=== PATIENT | male | born 1990 | race Caucasian/White ===

== ENCOUNTER → 2025-04-18 | Outpatient (CLI) | payer OTHER, SELFPAY | END | disposition home or self-care (01) | PROVIDERS: PCP Nurse Practitioner Family; Referring Provider Nurse Practitioner Family; Visit Provider Nurse Practitioner Family | DX: G47.33 Obstructive sleep apnea (adult) (pediatric) (principal) | CPT/HCPCS: 95811 ==

== ENCOUNTER → 2025-05-05 | Outpatient (CLI) | payer OTHER, SELFPAY ==
--- OUTSIDE RECORDS SUMMARY | 2025-05-05 07:01 | XMS RPT_ITS | CCD ---
Author Organization [facility] Care Team Providers Care Process Development Engineer Name Role Phone Unavailable Primary Care Provider Unavailabl e Franco ENVIRONMENTAL FIELD SERVICES TECHNICIAN.Renuka WYNN Primary Care Provider Franco ENVIRONMENTAL FIELD SERVICES TECHNICIAN.Renuka WYNN Primary Care Provider RENUKA GAMEZ Referring Unavailable RENUKA GAMEZ Primary Care Unavailable RENUKA GAMEZ Attending Unavailable RENUKA GAMEZ Primary Care Unavailable Franco LOAN EXAMINER-C, Renuka Primary Care Provider Franco LOAN EXAMINER-CRenuka Attending Provider Franco LOAN EXAMINER-CRenuka Referring Provider Renuka Gamez Referring Unavailable Renuka Gamez Attending Unavailable Renuka Gamez Primary Care Unavailable Renuka Gamez Primary Care Unavailable Renuka Gamez Referring Unavailable Renuka Gamez Attending Unavailable Medications Current Medications Medication Drug Class(es) Dates Sig (Normalized) Sig (Original) amoxicillin 875 mg / clavulanate 125 mg oral tablet (1 source) Penicillin-class Antibacterial Start: 05-11-2023 End: 05-18-2023 take 1 tablet by mouth twice daily amoxicillin-clavu lanic acid (AUGMENTIN) 875-125 mg per tablet Take 1 tablet by mouth twice daily for 7 days. 14 tablet 0 05/11/2023 05/18/2023 Active Comment on above: Take 1 tablet by zoila twice daily for 7 days. cetirizine hydrochloride 10 mg oral capsule (9 sources) Histamine-1 Receptor Antagonist Cetirizine (ZYRTEC) 10 mg cap Take by mouth. Active Comment on above: Take by mouth. oseltamivir 75 mg oral capsule (1 source) Neuraminidase Inhibitor Start: 11-20-2024 End: 03-01-2025 take 1 capsule by mouth once daily oseltamivir (TAMIFLU) 75 mg capsule Take 1 capsule by mouth once daily for 7 days. 7 capsule 11/20/2024 11/27/2024 Active predniSONE 10 mg oral tablet (1 source) Start: 06-05-2023 End: 06-17-2023 predniSONE (DELTASONE) 10 mg tablet Indications: ETD (Eustachian tube dysfunction), bilateral Take 4 tabs daily x 3 days, then 3 tabs x 3 days, 2 tabs x 3 days, then 1 tab x3 days with food. 30 tablet 0 06/05/2023 06/17/2023 Active Comment on above: Take 4 tabs daily x 3 days, then 3 tabs x 3 days, 2 tabs x 3 days, then 1 tab x3 days with food. Completed/Discontinued Medications Medication Drug Class(es) Dates Sig (Normalized) Sig (Original) fluticasone propionate 0.05 mg/actuat metered dose nasal spray (5 sources) Corticosteroid Start: 06-05-2023 End: 03-14-2025 take 2 spray(s) by mouth once daily fluticasone (FLONASE) 50 mcg/actuation nasal spray Indications: ETD (Eustachian tube dysfunction), bilateral Use 2 Sprays in each nostril once daily. Rinse mouth after use. 1 Each 06/05/2023 03/14/2025 Discontinued Comment on above: Use 2 Sprays in each nostril once daily. Rinse mouth after use. Multivitamin capsule (10 sources) End: 03-14-2025 take 1 capsule by mouth once daily Multivitamin capsule Take 1 capsule by mouth once daily. 03/14/2025 Discontinued take 1 capsule by mouth once jose manuel ly Multivitamin capsule Take 1 capsule by mouth once daily. Active take 1 capsule by mouth once jose manuel ly Multivitamin capsule Take 1 capsule by mouth once daily. 0 Active Comment on above: Take 1 capsule by [facility] once daily. Problems Problem Classification Problem Date Documented Da te Episodic/Chronic Immunizations and screening for infectious disease (1 source) Encounter for immunization; Translations: [Encounter for immunization] Onset: 03-14-2025 Episodic Other lower respiratory disease (1 source) Snoring; Translations: [Snoring] Episodic Other male genital disorders (2 sources) Pain in testicle; Translations: [Testicular pain, unspecified] Episodic Other nutritional; endocrine; and metabolic disorders (5 sources) Obese class I; Translations: [Obesity, Class I, BMI 30-34.9] Onset: 03-14-2025 03-14-2025 Chronic Other screening for suspected conditions (not mental disorders or infectious disease) (7 sources) Patient encounter status; Translations: [Encounter for screening for lipoid disorders] Onset: 03-14-2025 Episodic Other upper respiratory disease (1 source) Chronic rhinitis; Translations: [Unspecified sinusitis (chronic)] 05-11-2023 Chronic Other upper respiratory infections (1 source) Acute upper respiratory infection; Translations: [Acute upper respiratory infection, unspecified] 09-17-2023 Episodic Otitis media and related conditions (2 sources) Acute left otitis media; Translations: [Otitis media, unspecified, left ear] 05-11-2023 Episodic Residual codes; unclassified (2 sources) Obstructive sleep apnea syndrome; Translations: [Obstructive sleep apnea (adult) (pediatric)] Chronic Residual codes; unclassified (1 source) Obstructive sleep apnea (adult) (pediatric); Translations: [Obstructive sleep apnea (adult) (pediatric)] Onset: 04-22-2025 Chronic Residual codes; unclassified (1 source) FH: Hypothyroidism; Translations: [Family history of other endocrine, nutritional and metabolic diseases] 03-14-2025 Episodic Residual codes; unclassified (1 source) Family history of other endocrine, nutritional and metabolic diseases; Translations: [FH: hypothyroidism] Onset: 03-14-2025 Episodic Screening and history of mental health and substance abuse codes (2 sources) Encounter for screening for depression; Translations: [Encounter for screening examination for other mental health and behavioral disorders] Onset: 03-14-2025 Episodic Unclassified (1 source) Obesity, Class I, BMI 30-34.9; Translations: [Obesity, Class I, BMI 30-34.9] Onset: 03-14-2025 Results Test Name Value Interpretation Reference Range Charles Bell 04-15-2025 JOON Telephone (FAMPWS) VINCENT LEZAMA ([id number]) 1990 M Date Time Provider Department 04/15/25 RENUKA GAMEZ During your visit today, we recorded the following information about you: Huma Alvarado RN 04/15/2025 11:11 AM Signed Mai from [facility] Scheduling calling and states that patient is scheduled for sleep study on Friday. Mai reports that they need a new sleep study order so that they can get it processed through insurance. Renuka wrote previous order on 04/23/2024. Please review and advise, ERIKA Mehta Jeffrey A, MD 04/15/2025 4:08 PM Signed Order written and ready to be faxed. Saranya Delcid MA 04/15/2025 4:10 PM Signed Order faxed. Saranya Delcid MA Allergies As of Date: 04/15/2025 (No Known Allergies) Date Reviewed: 03/14/2025 Reviewed by: Alysha Chung MA - Fully Assessed Reason for Visit: Orders [681] Prescriptions as of 04/15/2025 - Cetirizine (ZYRTEC) 10 mg cap Take by mouth. Problem List As Of Date 04/15/2025 Noted Resolved Obesity, Class I, BMI 30-34.9 [E66.811] 03/14/2025 Encounter Status:Closed by SARANYA DELCID on 04/15/25 Normal [facility] CBC W Auto Differential pane l (Bld)on 03-14-2025 Basophils (Bld) [#/Vol] 0.06 10*3/uL [facility] Basophils/100 WBC (Bld) 0.9 % [facility] Differential cell count method Nom (Bld) Auto [facility] Eosinophils (Bld) [#/Vol] 0.15 10*3/uL [facility] Eosinophils/100 WBC (Bld) 2.3 % [facility] Erythrocyte distribution width (RBC) [Ratio] 12.7 % 11.5 - 15.0 % [facility] Hematocrit (Bld) [Volume fraction] 46.2 % 39.0 - 51.0 % [facility] Hemoglobin (Bld) [Mass/Vol] 16 g/dL 13.0 - 17.0 g/dL [facility] Immature granulocytes (Bld) [#/Vol] NINF [facility] Immature granulocytes/100 WBC (Bld) 0.3 % [facility] Lymphocytes (Bld) [#/Vol] 2.87 10*3/uL [facility] Lymphocytes/100 WBC (Bld) 44.4 % [facility] MCH (RBC) [Entitic mass] 30.9 pg 26.0 - 34.0 pg [facility] MCHC (RBC) [Mass/Vol] 34.6 g/dL 30.5 - 36.0 g/dL [facility] MCV (RBC) [Entitic vol] 89.2 fL 80.0 - 100.0 fL [facility] Monocytes (Bld) [#/Vol] 0.47 10*3/uL [facility] Monocytes/100 WBC (Bld) 7.3 % [facility] Neutrophils (Bld) [#/Vol] 2.9 10*3/uL [facility] Neutrophils/100 WBC (Bld) 44.8 % [facility] Nucleated RBC (Bld) [#/Vol] [facility] Nucleated RBC/100 WBC (Bld) [Ratio] 0 % /100 WBC [facility] Platelet mean volume (Bld) [Entitic vol] 10.1 fL 9.0 - 12.7 fL [facility] Platelets (Bld) [#/Vol] 362 10*3/uL [facility] RBC (Bld) [#/Vol] 5.18 10*6/uL 4.20 - 6.0 0 m/uL [facility] WBC (Bld) [#/Vol] 6.47 10*3/uL [facility] Basophils (Bld) [#/Vol] 0.06 10*3/uL Normal <0.11 [facility] Comment on above: Order Comment: Speci men Type: BLOOD SPECIMEN Ordering Facility: [facility] Address: [address] [place] [address] Performed By: #### 5 7021-8 #### [facility] CLIA [id number] [address] [place] [address] [place] Basophils/100 WBC (Bld) 0.9 % Normal [facility] Comment on above: Order Comment: Speci men Type: BLOOD SPECIMEN Ordering Facility: [facility] Address: [address] [place] [address] Performed By: #### 5 7021-8 #### [facility] CLIA [id number] [address] [place] [address] [place] Differential cell count method Nom (Bld) Auto Normal [facility] Comment on above: Order Comment: Speci men Type: BLOOD SPECIMEN Ordering Facility: [facility] Address: [address] [place] [address] Performed By: #### 5 7021-8 #### [facility] CLIA [id number] [address] [place] [address] [place] Eosinophils (Bld) [#/Vol] 0.15 10*3/uL Normal <0.46 [facility] Comment on above: Order Comment: Speci men Type: BLOOD SPECIMEN Ordering Facility: [facility] Address: [address] [place] [address] Performed By: #### 5 7021-8 #### [facility] CLIA [id number] [address] [place] [address] [place] Eosinophils/100 WBC (Bld) 2.3 % Normal [facility] Comment on above: Order Comment: Speci men Type: BLOOD SPECIMEN Ordering Facility: [facility] Address: [address] [place] [address] Performed By: #### 5 7021-8 #### [facility] CLIA [id number] [address] [place] [address] [place] Erythrocyte distribution width (RBC) [Ratio] 12.7 % Normal 11.5-15.0 [facility] Comment on above: Order Comment: Speci men Type: BLOOD SPECIMEN Ordering Facility: [facility] Address: [address] [place] [address] Performed By: #### 5 7021-8 #### [facility] CLIA [id number] [address] [place] [address] [place] Hematocrit (Bld) [Volume fraction] 46.2 % Normal 39.0-51.0 [facility] Comment on above: Order Comment: Speci men Type: BLOOD SPECIMEN Ordering Facility: [facility] Address: [address] [place] [address] Performed By: #### 5 7021-8 #### [facility] CLIA [id number] [address] [place] [address] [place] Hemoglobin (Bld) [Mass/Vol] 16.0 g/dL Normal 13.0-17.0 [facility] Comment on above: Order Comment: Speci men Type: BLOOD SPECIMEN Ordering Facility: [facility] Address: [address] [place] [address] Performed By: #### 5 7021-8 #### [facility] CLIA [id number] [address] [place] [address] [place] Immature granulocytes (Bld) [#/Vol] 10*3/uL Normal <0.10 [facility] Comment on above: Order Comment: Speci men Type: BLOOD SPECIMEN Ordering Facility: [facility] Address: [address] [place] [address] Performed By: #### 5 7021-8 #### [facility] CLIA [id number] [address] [place] [address] [place] Immature granulocytes/100 WBC (Bld) 0.3 % Normal [facility] Comment on above: Order Comment: Speci men Type: BLOOD SPECIMEN Ordering Facility: [facility] Address: [address] [place] [address] Performed By: #### 5 7021-8 #### [facility] CLIA [id number] [address] [place] [address] [place] Lymphocytes (Bld) [#/Vol] 2.87 10*3/uL Normal 1.00-4.00 [facility] Comment on above: Order Comment: Speci men Type: BLOOD SPECIMEN Ordering Facility: [facility] Address: [address] [place] [address] Performed By: #### 5 7021-8 #### [facility] CLIA [id number] [address] [place] [address] [place] Lymphocytes/100 WBC (Bld) 44.4 % Normal [facility] Comment on above: Order Comment: Speci men Type: BLOOD SPECIMEN Ordering Facility: [facility] Address: [address] [place] [address] Performed By: #### 5 7021-8 #### [facility] CLIA [id number] [address] [place] [address] [place] MCH (RBC) [Entitic mass] 30.9 pg Normal 26.0-34.0 [facility] Comment on above: Order Comment: Speci men Type: BLOOD SPECIMEN Ordering Facility: [facility] Address: [address] [place] [address] Performed By: #### 5 7021-8 #### [facility] CLIA [id number] [address] [place] [address] [place] MCHC (RBC) [Mass/Vol] 34.6 g/dL Normal 30.5-36.0 [facility] Comment on above: Order Comment: Speci men Type: BLOOD SPECIMEN Ordering Facility: [facility] Address: [address] [place] [address] Performed By: #### 5 7021-8 #### [facility] CLIA [id number] [address] [place] [address] [place] MCV (RBC) [Entitic vol] 89.2 fL Normal 80.0-100.0 [facility] Comment on above: Order Comment: Speci men Type: BLOOD SPECIMEN Ordering Facility: [facility] Address: [address] [place] [address] Performed By: #### 5 7021-8 #### [facility] CLIA [id number] [address] [place] [address] [place] Monocytes (Bld) [#/Vol] 0.47 10*3/uL Normal <0.87 [facility] Comment on above: Order Comment: Speci men Type: BLOOD SPECIMEN Ordering Facility: [facility] Address: [address] [place] [address] Performed By: #### 5 7021-8 #### [facility] CLIA [id number] [address] [place] [address] [place] Monocytes/100 WBC (Bld) 7.3 % Normal [facility] Comment on above: Order Comment: Speci men Type: BLOOD SPECIMEN Ordering Facility: [facility] Address: [address] [place] [address] Performed By: #### 5 7021-8 #### [facility] CLIA [id number] [address] [place] [address] [place] Neutrophils (Bld) [#/Vol] 2.90 10*3/uL Normal 1.45-7.50 [facility] Comment on above: Order Comment: Speci men Type: BLOOD SPECIMEN Ordering Facility: [facility] Address: [address] [place] [address] Performed By: #### 5 7021-8 #### [facility] CLIA [id number] [address] [place], [place] [address] [place] Neutrophils/100 WBC (Bld) 44.8 % Normal [facility] Comment on above: Order Comment: Speci men Type: BLOOD SPECIMEN Ordering Facility: [facility] Address: [address] [place] [address] Performed By: #### 5 7021-8 #### [facility] CLIA [id number] [address] [place], [place] [id number] [place] Nucleated RBC (Bld) [#/Vol] 10*3/uL Normal <0.01 [facility] Comment on above: Order Comment: Speci men Type: BLOOD SPECIMEN Ordering Facility: [facility] Address: [address] [place] [address] Performed By: #### 5 7021-8 #### [facility] CLIA [id number] [address] [place] [address] [place] Nucleated RBC/100 WBC (Bld) [Ratio] 0.0 /100 WBC Normal [facility] Comment on above: Order Comment: Speci men Type: BLOOD SPECIMEN Ordering Facility: [facility] Address: [address] [place] [address] Performed By: #### 5 7021-8 #### [facility] CLIA [id number] [address] [place] [address] [place] Platelet mean volume (Bld) [Entitic vol] 10.1 fL Normal 9.0-12.7 [facility] Comment on above: Order Comment: Speci men Type: BLOOD SPECIMEN Ordering Facility: [facility] Address: [address] [place] [address] Performed By: #### 5 7021-8 #### [facility] CLIA [id number] [address] [place] [address] [place] Platelets (Bld) [#/Vol] 362 10*3/uL Normal 150-400 [facility] Comment on above: Order Comment: Speci men Type: BLOOD SPECIMEN Ordering Facility: [facility] Address: [address] [place] [address] Performed By: #### 5 7021-8 #### [facility] CLIA [id number] [address] [place] [address] [place] RBC (Bld) [#/Vol] 5.18 10*6/uL Normal 4.20-6.00 [facility] Comment on above: Order Comment: Speci men Type: BLOOD SPECIMEN Ordering Facility: [facility] Address: [address] [place] [address] Performed By: #### 5 7021-8 #### [facility] CLIA [id number] [address] [place] [address] [place] WBC (Bld) [#/Vol] 6.47 10*3/uL Normal 3.70-11.00 [facility] Comment on above: Order Comment: Speci men Type: BLOOD SPECIMEN Ordering Facility: [facility] Address: [address] [place] [address] Performed By: #### 5 7021-8 #### [facility] CLIA [id number] [address] [place] [address] [place] CNOVon 03-14-2025 [facility] VINCENT LEZAMA ([id number]) 1990 M Date Time Provider Department 03/14/25 1:40 PM RENUKA GAMEZ [facility] During your visit today, we recorded the following information about you: Pulse Blood pressure Weight 82/minute 122/79 110 kg Renuka Gamez APRN.LAN SUPPORT SPECIALIST 03/14/2025 3:05 PM Signed Chief Complaint Patient presents with: Follow Up HPI Vincent Lezama is a 34 year old male who presents here today for Above Complaints.. Patient presents for wellness visit. Has not been seen since 2022. Back in 2022 he had a home sleep study done and was diagnosed with sleep apnea. Was ordered a cpap, but never heard from the company and did not receive it. Snores at night Mother also was diagnosed with hypothyroidism in the last few years. Patient states that he is often tired but denies sensitivity to heat or cold, or weight changes. Also has young children at home. Seasonal allergies- takes daily zyrtec and uses Flonase as needed. States it is well controlled. Average caffeine intake is 3-5 cups of coffee. Does not follow a particular diet. Does exercise 2-3 times a week, varies activities walking, running, and lifting weights. Reports job is very demanding and does not feel depressed/anxious just overworked. Past medical history, appointments, medications, allergies reviewed. Previous Medical History PAST MEDICAL HISTORY Diagnosis Date History of varicocele Previous Surgical History No past surgical history on file. Family History FAMILY HISTORY Problem Relation Age of Onset Migraines Mother Hypothyroidism Mother No Known Problems Father unknown other (other) Maternal Grandmother spinal ataxia Heart Attack Maternal Grandfather Heart disease Maternal Grandfather other (oth) Maternal Grandfather dissected aorta Patient Allergies ALLERGIES No Known Allergies Current Medications Current Outpatient Medications on File Prior to Visit Medication Sig Cetirizine (ZYRTEC) 10 mg cap Take by mouth. No current facility-administered medications on file prior to visit. Social History Social History Tobacco Use Smoking status: Never Smokeless tobacco: Never Substance Use Topics Alcohol use: Yes Alcohol/week: 3.0 standard drinks of alcohol Types: 2 Cans of beer, 1 Shots of liquor per week Drug use: Never Review of Symptoms REVIEW OF SYSTEMS GENERAL: No weight loss, malaise or fevers/chills HEENT: Negative for frequent or significant headaches, No changes in hearing or vision. NECK: Negative for lumps, goiter, pain and significant neck swelling RESPIRATORY: Negative for cough, hemoptysis, wheezing, dyspnea or shortness of breath CARDIOVASCULAR: Negative for chest pain, leg swelling, orthopnea, or palpitations GI: No nausea, vomiting, or diarrhea/constipation . No hematochezia/melena. No heartburn or reflux symptoms. : No history of dysuria, frequency or incontinence MUSCULOSKELETAL: Routinely has bilateral knee pain that is chronic SKIN: Negative for lesions, rash, and itching ENDOCRINE: Negative for cold or heat intolerance, polyuria, polydipsia and goiter NEURO: Intermittent history of headaches. No syncope, paralysis, seizures or tremors MOOD: Negative for depression, anxiety, or suicidal ideation. EXAM: BP 122/79 Pulse 82 Wt 110 kg (242 lb 8.1 oz) BMI 31.99 kg/m? General Appearance: Well appearing, alert, in no acute distress, well-hydrated, well nourished.. Skin: Skin color, texture, turgor normal, no suspicious rashes or lesions. Head: Normocephalic, no masses, lesions, tenderness or abnormalities. Eyes: Anicteric sclera. Pupils are equally round and reactive to light. Extraocular movements are intact. . Ears: External ears normal, canals clear. Nose/Sinuses: Nares normal, septum midline, mucosa normal, no drainage or sinus tenderness. Oropharynx: Lips, mucosa, and tongue normal, teeth and gums normal, oropharynx normal. Neck: Supple, no adenopathy; thyroid symmetric, normal size, no bruits. Lungs: Lungs clear to auscultation. No wheezing, rhonchi, rales.. Heart: RRR without murmur, gallop, or rubs. No ectopy. Abdomen: Normal abdominal exam, Abdomen soft, non-tender. Bowel sounds normal. No masses, organomegaly. Health Maintenance List DTaP,Tdap,Td Vaccine(5 - Tdap) due on 2000 Depression Screening Never done Anxiety Screening Never done Hepatitis C Screening Never done HIV Screening Never done Covid-19 Vaccine( season) due on 05/30/2024 Influenza Vaccine(Season Ended) due on 05/30/2025 Lipid Screening due on 11/15/2027 Hepatitis B Vaccine Discontinued ASSESSMENT/PLAN: 1. Well adult exam - ICD9: V70.0, ICD10: Z00.00 (primary diagnosis) - Counseled on healthy diet and regular exercise - Discussed need for and benefit of weight loss. BMI 31.99 kg/(m2) - Patient counseled on and (more content not included)... Normal [facility] Comprehensive metabolic 2000 panelon 03-14-2025 Albumin [Mass/Vol] 4.8 g/dL Normal 3.9-4.9 [facility] Comment on above: Order Comment: Speci men Type: BLOOD SPECIMEN Ordering Facility: [facility] Address: [address] [place] [address] Performed By: #### 3 024-7, 13530-5, LIPNF, 3053-6 #### [facility] CLIA [id number] [address] [place] [address] [id number] [address] [place] ALP [Catalytic activity/Vol] 65 U/L Normal 38-113 [facility] Comment on above: Order Comment: Speci men Type: BLOOD SPECIMEN Ordering Facility: [facility] Address: [address] [place] [address] Performed By: #### 3 024-7, 72144-8, LIPNF, 305-6 #### [facility] CLIA [id number] [address] [place] [address] [place] ALT [Catalytic activity/Vol] 36 U/L Normal 10-54 [facility] Comment on above: Order Comment: Speci men Type: BLOOD SPECIMEN Ordering Facility: [facility] Address: [address] [place] [address] Performed By: #### 3 024-7, 96153-4, LIPNF, 305-6 #### [facility] CLIA [id number] [address] [place] [address] [place] Anion gap [Moles/Vol] 13 mmol/L Normal 8-15 [facility] Comment on above: Order Comment: Speci men Type: BLOOD SPECIMEN Ordering Facility: [facility] Address: [address] [place] [address] Performed By: #### 3 024-7, 77931-3, LIPNF, 305-6 #### [facility] CLIA [id number] [address] [place] [address] [place] AST [Catalytic activity/Vol] 34 U/L Normal 14-40 [facility] Comment on above: Order Comment: Speci men Type: BLOOD SPECIMEN Ordering Facility: [facility] Address: [address] [place] [address] Performed By: #### 3 024-7, 62095-4, LIPNF, 3053-6 #### [facility] CLIA [id number] [address] [place] [address] [place] Bilirubin [Mass/Vol] 0.5 mg/dL Normal 0.2-1.3 [facility] Comment on above: Order Comment: Speci men Type: BLOOD SPECIMEN Ordering Facility: [facility] Address: [address] [place] [address] Performed By: #### 3 024-7, 52240-6, LIPNF, 305-6 #### [facility] CLIA [id number] [address] [place] [address] [place] Calcium [Mass/Vol] 9.1 mg/dL Normal 8.5-10.2 [facility] Comment on above: Order Comment: Speci men Type: BLOOD SPECIMEN Ordering Facility: [facility] Address: [address] [place] [address] Performed By: #### 3 024-7, 89775-7, LIPNF, 3052-6 #### [facility] CLIA [id number] [address] [place] [address] [place] Chloride [Moles/Vol] 103 mmol/L Normal 98-107 [facility] Comment on above: Order Comment: Speci men Type: BLOOD SPECIMEN Ordering Facility: [facility] Address: [address] [place] [address] Performed By: #### 3 024-7, 64302-2, LIPNF, 3052-6 #### [facility] CLIA [id number] [address] [place] [address] [place] CO2 [Moles/Vol] 25 mmol/L Normal 22-30 [facility] Comment on above: Order Comment: Speci men Type: BLOOD SPECIMEN Ordering Facility: [facility] Address: [address] [place] [address] Performed By: #### 3 024-7, 58359-8, LIPNF, 305-6 #### [facility] CLIA [id number] [address] [place] [address] [place] Creatinine [Mass/Vol] 1.17 mg/dL Normal 0.73-1.22 [facility] Comment on above: Order Comment: Speci men Type: BLOOD SPECIMEN Ordering Facility: [facility] Address: [address] [place] [address] Performed By: #### 3 024-7, 73151-0, LIPGUY, 3053-6 #### [facility] CLIA [id number] [address] [place] [address] [place] Creatinine and Glomerular filtration rate.predicted panel (S/P/Bld) 83 mL/min/1.73m??? Normal >=60 [facility] Comment on above: Order Comment: Yumiko rhodes Type: BLOOD SPECIMEN Ordering Facility: [facility] Address: [address] [place] [address] Result Comment: Stephanie mated Glomerular Filtration Rate (eGFR) is calculated using the 2020 CKD-EPI creatinine equation. This equation utilizes serum creatinine, sex, and age as parameters. The creatinine assay has traceable calibration to isotope dilution-mass spectrometry. Refer to KDIGO guidelines for clinical interpretation. In patients with unstable renal function, e.g. those with acute kidney injury, the eGFR may not accurately reflect actual GFR. Performed By: #### 3 024-7, 81329-2, LIPGUY, 3053-6 #### [facility] CLIA [id number] [address] [place] [address] [place] Glucose [Mass/Vol] 84 mg/dL Normal 74-99 [facility] Comment on above: Order Comment: Yumiko rhodes Type: BLOOD SPECIMEN Ordering Facility: [facility] Address: [address] [place] [address] Result Comment: The [place] Diabetes Association (ADA) provides guidance for cutoff values for fasting glucose and random glucose. The ADA defines fasting as no caloric intake for at least 8 hours. Fasting plasma glucose results between 100 to 125 mg/dL indicate increased risk for diabetes (prediabetes). Fasting plasma glucose results greater than or equal to 126 mg/dL meet the criteria for diagnosis of diabetes. In the absence of unequivocal hyperglycemia, results should be confirmed by repeat testing. In a patient with classic symptoms of hyperglycemia or hyperglycemic crisis, random plasma glucose results greater than or equal to 200 mg/dL meet the criteria for diagnosis of diabetes. Reference: Standards of Medical Care in Diabetes 2016, [place] Diabetes Association. Diabetes Care. 2016.39(Suppl 1). Performed By: #### 3 024-7, 22657-0, LIPNF, 3053-6 #### [facility] CLIA [id number] [address] [place] [address] [place] Potassium [Moles/Vol] 4.1 mmol/L Normal 3.7-5.1 [facility] Comment on above: Order Comment: Speci men Type: BLOOD SPECIMEN Ordering Facility: [facility] Address: [address] [place] [address] Performed By: #### 3 024-7, 97948-7, LIPNF, 305-6 #### [facility] CLIA [id number] [address] [place] [address] [place] Protein [Mass/Vol] 7.4 g/dL Normal 6.3-8.0 [facility] Comment on above: Order Comment: Speci men Type: BLOOD SPECIMEN Ordering Facility: [facility] Address: [address] [place] [address] Performed By: #### 3 024-7, 04047-1, LIPNF, 305-6 #### [facility] CLIA [id number] [address] [place] [address] [place] Sodium [Moles/Vol] 141 mmol/L Normal 136-144 [facility] Comment on above: Order Comment: Speci men Type: BLOOD SPECIMEN Ordering Facility: [facility] Address: [address] [place] [address] Performed By: #### 3 024-7, 19782-8, LIPNF, 3053-6 #### [facility] CLIA [id number] [address] [place] [address] [place] Urea nitrogen [Mass/Vol] 11 mg/dL Normal 9-24 [facility] Comment on above: Order Comment: Speci men Type: BLOOD SPECIMEN Ordering Facility: [facility] Address: [address] [place] [address] Performed By: #### 3 024-7, 77542-7, LIPNF, 305-6 #### [facility] CLIA [id number] [address] [place] [address] [facility] [place] LIPID PANEL, NONFASTINGon Cholesterol [Mass/Vol] 178 mg/dL Normal <200 [facility] Comment on above: Order Comment: Yumiko rhodes Type: BLOOD SPECIMEN Ordering Facility: [facility] Address: [address] [place] [address] Result Comment: <200 mg/dL, Desirable 200-239 mg/dL, Borderline high >239 mg/dL, High Performed By: #### 3 024-7, 12866-6, LIPNF, 305-6 #### [facility] CLIA [id number] [address] [place] [address] [place] HDL CHOLESTEROL, NF 59 mg/dL Normal >39 [facility] Comment on above: Order Comment: Yumiko rhodes Type: BLOOD SPECIMEN Ordering Facility: [facility] Address: [address] [place] [address] Result Comment: 40-5 9 mg/dL, Acceptable >59 mg/dL, High: Negative risk factor for coronary heart disease <40 mg/dL, Low: Positive risk factor for coronary heart disease Performed By: #### 3 024-7, 49171-9, LIPNF, 305-6 #### [facility] CLIA [id number] [address] [place] [address] [place] LDL CHOLESTEROL CALCULATED, NF 110 mg/dL High <100 [facility] Comment on above: Order Comment: Yumiko rhodes Type: BLOOD SPECIMEN Ordering Facility: [facility] Address: [address] [place] [address] Result Comment: <100 mg/dL, Optimal 100-129 mg/dL, Near optimal/above optimal 130-159 mg/dL, Borderline high 160-189 mg/dL, High >189 mg/dL, Very high Secondary prevention optimal LDL Cholesterol levels are recommended to be <70 mg/dL LDL cholesterol is calculated using the Gunter-NIH equation. Performed By: #### 3 024-7, 95274-2, LIPGUY, 3053-6 #### [facility] CLIA [id number] [address] [place] [address] OF [facility] LDL/HDL RATIO, NF 1.86 mg/dL Normal <2.54 [facility] Comment on above: Order Comment: Speci men Type: BLOOD SPECIMEN Ordering Facility: [facility] Address: [address] [place] [address] Result Comment: Refe rence: 1. National Cholesterol Education Program ATP III Guideline At-A-Glance Quick Desk Reference: National Heart, Lung, and Blood [place]. National Institutes of Health. 2001: NIH Publication No. 01-3305. 2. An International Atherosclerosis Society position paper: global recommendations for the management of dyslipidemia: executive summary, Atherosclerosis. 2014: 232(2):410-413. Performed By: #### 3 024-7, 29650-9, LIPGUY, 6 #### [facility] CLIA [id number] [address] [place] [address] STATES OF [facility] NON HDL CHOL, NF 119 mg/dL Normal <130 [facility] Comment on above: Order Comment: Yumiko carmelo Type: BLOOD SPECIMEN Ordering Facility: [facility] Address: [address] [place] [address] Result Comment: <130 mg/dL, Optimal 130-159 mg/dL, Near optimal/above optimal 160-189 mg/dL, Borderline high 190-219 mg/dL, High >219 mg/dL, Very high Secondary prevention optimal non HDL Cholesterol levels are recommended to be <100 mg/dL Performed By: #### 3 024-7, 28730-0, LIPNF, 305-6 #### [facility] CLIA [id number] [address] [place] [address] [place] T CHOL/HDL RATIO NF 3.02 mg/dL Normal <5.10 [facility] Comment on above: Order Comment: Speci men Type: BLOOD SPECIMEN Ordering Facility: [facility] Address: [address] [place] [address] Performed By: #### 3 024-7, 19026-5, LIPNF, 305-6 #### [facility] CLIA [id number] [address] [place] [address] [place] TRIGLYCERIDES, NF 43 mg/dL Normal <150 [facility] Comment on above: Order Comment: Speci men Type: BLOOD SPECIMEN Ordering Facility: [facility] Address: [address] [place] [address] Result Comment: <150 mg/dL, Normal 150-199 mg/dL, Borderline high 200-499 mg/dL, High >499 mg/dL, Very high Performed By: #### 3 024-7, 58405-2, LIPNF, 305-6 #### [facility] CLIA [id number] [address] [place] [address] [place] VLDL CHOLESTEROL, NF 7 mg/dL Normal <30 [facility] Comment on above: Order Comment: Speci men Type: BLOOD SPECIMEN Ordering Facility: [facility] Address: [address] [place] [address] Performed By: #### 3 024-7, 72073-9, LIPNF, 305-6 #### [facility] CLIA [id number] [address] [place] [address] [place] T3 SerPl-mCncon 03-14-2025 T3 [Mass/Vol] 133 ng/dL Normal 79-165 [facility] Comment on above: Order Comment: Speci men Type: BLOOD SPECIMEN Ordering Facility: [facility] Address: [address] [place] [address] Performed By: #### 3 024-7, 09284-6, LIPNF, 3053-6 #### [facility] CLIA [id number] [address] [place] [address] [place] T4 Free SerPl-mCncon 025 Free T4 [Mass/Vol] 1.0 ng/dL Normal 0.9-1.7 [facility] Comment on above: Order Comment: Yumiko rhodes Type: BLOOD SPECIMEN Ordering Facility: [facility] Address: [address] [place] [address] Performed By: #### 3 024-7, 97843-8, LIPNF, 3053-6 #### [facility] CLIA [id number] [address] [place] [address] [place] TSH SerPl-aCncon 03-14-2025 TSH Qn 3.060 m[IU]/L Normal 0.270-4.200 [facility] Comment on above: Order Comment: Yumiko rhodes Type: BLOOD SPECIMEN Ordering Facility: [facility] Address: [address] [place] [address] Performed By: #### 3 016-3 #### [facility] CLIA [id number] [address] [place] [address] [place] CNPNon 11-20-2024 CNPN Telephone (PEDSWS) VINCENT LEZAMA ([id number]) 1990 M Date Time Provider Department 11/20/24 [facility] PEDS[facility] During your visit today, we recorded the following information about you: Linda Reyes LPN 11/20/2024 9:12 AM Signed Pt's child tested positive for influenza and his spouse is . Wonders if he can get a Rx for Tamiflu as discussed in a my chart message? Pharmacy info was verified. Cleveland Kennedy DO 11/20/2024 10:37 AM Signed The following approved medication requests have been transmitted electronically. Requested Prescriptions Signed Prescriptions Disp Refills oseltamivir (TAMIFLU) 75 mg capsule 7 capsule 0 Sig: Take 1 capsule by mouth once daily for 7 days. Authorizing Provider: CLEVELAND KENNEDY, Allergies As of Date: 11/20/2024 (No Known Allergies) Date Reviewed: 09/17/2023 Reviewed by: Santino Candelaria MA - Fully Assessed Reason for Visit: Tamiflu Rx [Other] Order(s):oseltamivir (TAMIFLU) 75 mg capsuleTake 1 capsule by mouth once daily for 7 days.Disp: 7 capsuleRfl: 0 Prescriptions as of 11/20/2024 - oseltamivir (TAMIFLU) 75 mg capsule Take 1 capsule by mouth once daily for 7 days. - fluticasone (FLONASE) 50 mcg/actuation nasal spray Use 2 Sprays in each nostril once daily. Rinse mouth after use. - Cetirizine (ZYRTEC) 10 mg cap Take by mouth. - Multivitamin capsule Take 1 capsule by mouth once daily. Problem List As Of Date: 11/20/2024 (None) Prescriptions ordered this encounter Disp Refills Start End OSELTAMIVIR 75 MG CAPSULE 7 ca* 0 11/20/2024 11/27/2024 Route: ORAL Sig: Take 1 capsule by mouth once daily for 7 days. Encounter Status:Closed by LINDA REYES on 11/20/24 Normal [facility] COVID & INFLUENZA A/B & RSV NAAT, ROUTINEon 09-17-2023 FLUAV RNA SUSAN+probe Ql (Unsp spec) Not detected Not Detected [facility] FLUBV RNA SUSAN+probe Ql (Unsp spec) Not detected Not Detected [facility] RSV A RNA SUSAN+probe Ql (Unsp spec) Not detected Not Detected [facility] SARS-CoV-2 (COVID-19) RNA SUSAN+probe Ql (Resp) Detected Abnormal See comment [facility] UA DIP, URINE (POC)on 2020 BILIRUBIN UA (POCT) Negative Negative [facility] CLARITY UA (POCT) Clear [facility] COLOR UA (POCT) Yellow [facility] GLUCOSE UA (POCT) Negative Negative mg/dL [facility] HEMOGLOBIN/BLOOD UA (POCT) Negative Negative [facility] KETONE UA (POCT) Negative Negative mg/dL [facility] LEUKOCYTES UA (POCT) Negative Negative [facility] NITRITE UA (POCT) Negative Negative [facility] PH UA (POCT) 6.5 4.5 - 8.0 [facility] Protein Ql (U) Negative Negative mg/dL [facility] SPECIFIC GRAVITY UA (POCT) <=1.005 Abnormal 1.005 - 1.030 [facility] UROBILINOGEN UA (POCT) 0.2 E.U./dL Normal E.U./dL [facility] No Panel Informationon 08-22 [facility] Vital Signs Date Time Vital Sign Value Performing Clinician Faci lity 03-14-2025 13:32-0400 Body mass index (BMI) [Ratio] 31.99 kg/m2 Renuka Gamez APRN.LAN SUPPORT SPECIALIST Work Phone: [facility] 03-14-2025 13:32-0400 Body weight 110 kg Renuka Gamez APRN.LAN SUPPORT SPECIALIST Work Phone: [facility] 03-14-2025 13:32-0400 Diastolic blood pressure 79 mm[Hg] Renuka Gamez APRN.LAN SUPPORT SPECIALIST Work Phone: [facility] 03-14-2025 13:32-0400 Heart rate 82 /min Renuka Gamez APRN.LAN SUPPORT SPECIALIST Work Phone: [facility] 03-14-2025 13:32-0400 Systolic blood pressure 122 mm[Hg] Renuka Gamez APRN.LAN SUPPORT SPECIALIST Work Phone: [facility] 09-17-2023 10:39-0500 Body temperature 97.9 [degF] Krislyn Aberegg PA Work Phone: [facility] 09-17-2023 10:39-0500 Body weight 110.68 kg Krislyn Aberegg PA Work Phone: [facility] 09-17-2023 10:39-0500 Diastolic blood pressure 82 mm[Hg] Krislyn Aberegg PA Work Phone: [facility] 09-17-2023 10:39-0500 Heart rate 92 /min Krislyn Aberegg PA Work Phone: [facility] 09-17-2023 10:39-0500 Respiratory rate 16 /min Krislyn Aberegg PA Work Phone: [facility] 09-17-2023 10:39-0500 SaO2% (BldA) [Mass fraction] 95 % Krislyn Aberegg PA Work Phone: [facility] 09-17-2023 10:39-0500 Systolic blood pressure 126 mm[Hg] Krislyn Aberegg PA Work Phone: [facility] 06-05-2023 14:14-0400 Body temperature 97.2 [degF] Matthias Jarrod ENVIRONMENTAL FIELD SERVICES TECHNICIAN.LAN SUPPORT SPECIALIST Work Phone: [facility] 06-05-2023 14:14-0400 Body weight 110.68 kg Matthias Jarrod ENVIRONMENTAL FIELD SERVICES TECHNICIAN.LAN SUPPORT SPECIALIST Work Phone: [facility] 06-05-2023 14:14-0400 Diastolic blood pressure 90 mm[Hg] Matthias Jarrod ENVIRONMENTAL FIELD SERVICES TECHNICIAN.LAN SUPPORT SPECIALIST Work Phone: [facility] 06-05-2023 14:14-0400 Heart rate 97 /min Matthias Jarrod ENVIRONMENTAL FIELD SERVICES TECHNICIAN.LAN SUPPORT SPECIALIST Work Phone: [facility] 06-05-2023 14:14-0400 Respiratory rate 21 /min Matthias Jarrod ENVIRONMENTAL FIELD SERVICES TECHNICIAN.LAN SUPPORT SPECIALIST Work Phone: [facility] 06-05-2023 14:14-0400 SaO2% (BldA) [Mass fraction] 98 % Matthias Jarrod ENVIRONMENTAL FIELD SERVICES TECHNICIAN.LAN SUPPORT SPECIALIST Work Phone: [facility] 06-05-2023 14:14-0400 Systolic blood pressure 122 mm[Hg] Matthias Jarrod ENVIRONMENTAL FIELD SERVICES TECHNICIAN.LAN SUPPORT SPECIALIST Work Phone: [facility] 05-11-2023 10:36-0400 Body temperature 97.59 [degF] Elva Pizarro ENVIRONMENTAL FIELD SERVICES TECHNICIAN.LAN SUPPORT SPECIALIST Work Phone: [facility] 05-11-2023 10:36-0400 Body weight 107.96 kg Elva Pizarro ENVIRONMENTAL FIELD SERVICES TECHNICIAN.LAN SUPPORT SPECIALIST Work Phone: [facility] 05-11-2023 10:36-0400 Diastolic blood pressure 82 mm[Hg] Elva Pizarro ENVIRONMENTAL FIELD SERVICES TECHNICIAN.LAN SUPPORT SPECIALIST Work Phone: [facility] 05-11-2023 10:36-0400 Heart rate 88 /min Elva Pizarro ENVIRONMENTAL FIELD SERVICES TECHNICIAN.LAN SUPPORT SPECIALIST Work Phone: [facility] 05-11-2023 10:36-0400 Respiratory rate 16 /min Elva Pizarro ENVIRONMENTAL FIELD SERVICES TECHNICIAN.LAN SUPPORT SPECIALIST Work Phone: [facility] 05-11-2023 10:36-0400 SaO2% (BldA) [Mass fraction] 97 % Elva Pizarro ENVIRONMENTAL FIELD SERVICES TECHNICIAN.LAN SUPPORT SPECIALIST Work Phone: [facility] 05-11-2023 10:36-0400 Systolic blood pressure 134 mm[Hg] Elva Pizarro ENVIRONMENTAL FIELD SERVICES TECHNICIAN.LAN SUPPORT SPECIALIST Work Phone: [facility] 11-15-2022 08:06-0500 Body weight 108.41 kg Renuka Lynoble ENVIRONMENTAL FIELD SERVICES TECHNICIAN.LAN SUPPORT SPECIALIST Work Phone: [facility] 11-15-2022 08:06-0500 Diastolic blood pressure 74 mm[Hg] Renuka Knoble ENVIRONMENTAL FIELD SERVICES TECHNICIAN.LAN SUPPORT SPECIALIST Work Phone: [facility] 11-15-2022 08:06-0500 Heart rate 90 /min Renuka Knoble ENVIRONMENTAL FIELD SERVICES TECHNICIAN.LAN SUPPORT SPECIALIST Work Phone: [facility] 11-15-2022 08:06-0500 Respiratory rate 14 /min Renuka Knoble ENVIRONMENTAL FIELD SERVICES TECHNICIAN.LAN SUPPORT SPECIALIST Work Phone: [facility] 11-15-2022 08:06-0500 Systolic blood pressure 130 mm[Hg] Renuka Knoble ENVIRONMENTAL FIELD SERVICES TECHNICIAN.LAN SUPPORT SPECIALIST Work Phone: [facility] 08-24-2021 08:54-0500 Body height 185.4 cm Katelyn Dallas DO Work Phone: [facility] 08-24-2021 08:54-0500 Body weight 96.62 kg Katelyn Dallas DO Work Phone: [facility] Encounters Encounter Date Encounter Type Care Provider Facility Start: 05-05-2025 ambulatory Renuka Gamez Facilit y:[facility] Start: 04-19-2025 End: 04-21-2025 ambulatory Renuka Gamez APRN.LAN SUPPORT SPECIALIST Work Phone: [facility] Comment on above: Sleep test Completed at [facility] Start: 04-18-2025 End: 04-18-2025 ambulatory Renuka Gamez LOAN EXAMINER-C Work Phone: [facility] Start: 04-18-2025 End: 04-18-2025 Patient encounter procedure Renuka Gamez LOAN EXAMINER-C -[facility] Work Phone: Start: 04-18-2025 End: 04-18-2025 ambulatory Renuka Gamez Facility:[facility] Start: 04-15-2025 End: 04-15-2025 Telephone encounter Renuka Gamez APRN.LAN SUPPORT SPECIALIST Work Phone: [facility] Comment on above: Orders Start: 03-15-2025 End: 03-15-2025 Follow-up encounter Renuka Gamez APRN.LAN SUPPORT SPECIALIST Work Phone: [facility] Start: 03-14-2025 End: 03-14-2025 ambulatory RENUKA GAMEZ Facility:[facility] Start: 03-14-2025 Encounter for genera l adult medical examination without abnormal findings RENUKA GAMEZ [facility] Start: 03-14-2025 End: 03-14-2025 Patient encounter procedure Renuka Gamez APRN.LAN SUPPORT SPECIALIST Work Phone: [facility] Comment on above: Well adult exam (Eli oren Dx); Screening for depression; Encounter for screening examination for other mental health and behavioral disorders; Encounter for immunization; FH: hypothyroidism; Screening for lipid disorders; Obesity, Class I, BMI 30-34.9 Start: 03-14-2025 End: 03-14-2025 Patient encounter status Renuka Gamez APRN.LAN SUPPORT SPECIALIST Work Phone: [facility] Start: 03-14-2025 End: 03-14-2025 ambulatory RENUKA GAMEZ Facility:[facility] Start: 11-20-2024 End: 11-20-2024 Telephone encounter Santino Kinney MD Work Phone: [facility] Comment on above: Tamiflu Rx Start: 04-23-2024 ambulatory Renuka calvo APRN.LAN SUPPORT SPECIALIST Work Phone: [facility] Comment on above: Sleep Apnea Start: 09-17-2023 End: 09-17-2023 Patient encounter procedure Li HERNANDEZ Work Phone: [facility] Comment on above: URI, acute (Primary Dx) Start: 06-05-2023 End: 06-05-2023 Patient encounter procedure Matthias Garay APRN.LAN SUPPORT SPECIALIST Work Phone: [facility] Comment on above: ETD (Eustachian tube dysfunction), bilateral (Primary Dx) Start: 05-11-2023 End: 05-11-2023 Patient encounter procedure Elva Pizarro ENVIRONMENTAL FIELD SERVICES TECHNICIAN.LAN SUPPORT SPECIALIST Work Phone: [facility] Comment on above: Acute otitis media, left (Primary Dx); Rhinosinusitis Start: 12-13-2022 Telephone encounter Renuka mathur APRN.LAN SUPPORT SPECIALIST Work Phone: [facility] Comment on above: Results Start: 11-18-2022 Chart abstracting [facility] Main Work Phone: Neurology Comment on above: HSAT Check In (Adult ) Start: 11-18-2022 Telephone encounter Renuka mathur APRN.LAN SUPPORT SPECIALIST Work Phone: [facility] Comment on above: Results Start: 11-15-2022 End: 11-15-2022 Patient encounter procedure Renuka Gamez APRN.LAN SUPPORT SPECIALIST Work Phone: [facility] Comment on above: Wellness examination (Primary Dx); Snoring; Encounter for lipid screening for cardiovascular disease; Screening for diabetes mellitus Start: 11-15-2022 End: 11-15-2022 Patient encounter status Renuka Gamez APRN.LAN SUPPORT SPECIALIST Work Phone: [facility] Start: 08-24-2021 End: 08-24-2021 Patient encounter procedure Katelyn Dallas DO Work Phone: Urology Comment on above: Pain in testicle, un specified laterality (Primary Dx) Start: 08-22-2021 End: 08-22-2021 Subsequent hospital visit by physician [facility] Comment on above: Pain in testicle, un specified laterality [N50.819] Procedures Date Procedure Procedure Detail Performing Clinician Start: 03-14-2025 Adult depression screening assessment Renuka Gamez APRN.LAN SUPPORT SPECIALIST Work Phone: Start: 03-14-2025 Lipid 1996 panel - S gal or Plasma Renuka Gamez ENVIRONMENTAL FIELD SERVICES TECHNICIAN.LAN SUPPORT SPECIALIST Work Phone: Start: 09-17-2023 COVID & INFLUENZA A/ B & RSV NAAT, ROUTINE Krisgisell Cote PA Work Phone: Start: 11-15-2022 Lipid 1996 panel - S gal or Plasma Santino Kinney MD Work Phone: Start: 08-24-2021 Urnls dip stick/tabl et rgnt auto w/o microscopy Katelyn Dallas DO Work Phone: Start: 08-22-2021 Dup-scan artl jeny abdl/pel/scrot&/rpr orgn com Katelyn Dallas DO Work Phone: Start: 08-22-2021 Us scrotum & contents J nayelyconstance Dallas DO Work Phone: Plan of Treatment Date Care Activity Detail Author Start: 03-14-2035 Urine microalbumin profile DTa P,Tdap,Td Vaccine (6 - Td or Tdap) [facility] Start: 03-14-2030 Lipid panel Lipid Screening [facility] Start: 11-15-2027 Lipid panel Lipid Screening [facility] Start: 03-14-2026 Anxiety Screening Anxiety Screening [facility] Start: 03-14-2026 Depression Screening Depression Scre ening [facility] Start: 07-14-2025 Covid-19 Vaccine () Covid-19 Vaccine () [facility] Comment on above: Postponed from 05/30 (Declined at this time) Start: 05-30-2025 Influenza vaccination [facility] Start: 03-14-2025 End: 06-13-2025 Comprehensive metabolic 2000 panel - Serum or Plasma [facility] Work Phone: Comment on above: Expected: 03/14/2025 , Expires: 06/13/2025 Start: 03-14-2025 End: 06-13-2025 LIPID PANEL, NONFASTING [facility] Comment on above: Expected: 03/14/2025 , Expires: 06/13/2025 Start: 03-14-2025 End: 06-13-2025 Thyrotropin [Units/volume] in Serum or Plasma [facility] Comment on above: Expected: 03/14/2025 , Expires: 06/13/2025 Start: 03-14-2025 End: 06-13-2025 Thyroxine (T4) free [Mass/volume] in Serum or Plasma [facility] Comment on above: Expected: 03/14/2025 , Expires: 06/13/2025 Start: 03-14-2025 End: 06-13-2025 Triiodothyronine (T3) [Mass/volume] in Serum or Plasma [facility] Comment on above: Expected: 03/14/2025 , Expires: 06/13/2025 Start: 05-30-2024 Covid-19 Vaccine ( season) Covid-19 Vaccine ( season) [facility] Start: 05-30-2024 Influenza vaccination Influenz a Vaccine (#1) [facility] Start: 05-30-2023 Covid-19 Vaccine ( season) Covid-19 Vaccine ( season) [facility] Start: 05-30-2023 Influenza vaccination [facility] Start: 11-15-2022 End: 01-15-2023 CBC W Auto Differential panel - Blood [facility] Work Phone: Comment on above: Expected: 11/15/2022 , Expires: 01/15/2023 Start: 11-15-2022 End: 01-15-2023 Comprehensive metabolic 2000 panel - Serum or Plasma [facility] Work Phone: Comment on above: Expected: 11/15/2022 , Expires: 01/15/2023 Start: 11-15-2022 End: 01-15-2023 Hemoglobin A1c in Blood [facility] Work Phone: Comment on above: Expected: 11/15/2022 , Expires: 01/15/2023 Start: 11-15-2022 End: 01-15-2023 LIPID PANEL, NONFASTING [facility] Work Phone: Comment on above: Expected: 11/15/2022 , Expires: 01/15/2023 Start: 05-30-2021 Influenza vaccination INFLUENZA (#1) [facility] Start: 2008 Urine microalbumin profile DTA P,TDAP,TD (1 - Tdap) [facility] Start: 2007 Anxiety Screening Anxiety Screening [facility] Start: 2007 Depression Screening Depression Scre [facility] Start: 2007 HEPATITIS C SCREENING HEPATITIS C [facility] Start: 2007 Hepatitis C screening Hepatitis C [facility] Start: 2007 HIV SCREENING HIV SCREENING [facility] Start: 2007 HIV screening HIV Screening [facility] Start: 2001 Adult depression scr [facility] assessment DEPRESSION SCREENING [facility] Start: 2000 Urine microalbumin profile DTa P,Tdap,Td Vaccine (5 - Tdap) [facility] Start: 1994 COVID-19 VACCINE (1) COVID-19 VACCIN E (1) [facility] End: 11-15-2023 HOME SLEEP APNEA TEST (HSAT) HOME SLEEP APNEA TEST (HSAT) Procedures Routine Snoring 1 Occurrences starting 11/15/2022 until 11/15/2023 [facility] Work Phone: Comment on above: 1 Occurrences starti ng 11/15/2022 until 11/15/2023 End: 05-23-2025 PAP TITRATION PSG (CPAP, BIPAP, ASV) PAP TITRATION PSG (CPAP, BIPAP, ASV) Procedures Routine FOSTER (obstructive sleep apnea) 1 Occurrences starting 04/23/2024 until 05/23/2025 [facility] Work Phone: Comment on above: 1 Occurrences starti ng 04/23/2024 until 05/23/2025 [facility] Immunizations Immunization Date Immunization Notes Care Provider Leann andrews 03-14-2025 tetanus toxoid, redu stacey diphtheria toxoid, and acellular pertussis vaccine, adsorbed Renuka Gamez ENVIRONMENTAL FIELD SERVICES TECHNICIAN.LAN SUPPORT SPECIALIST Work Phone: [facility] 09-10-2022 influenza, seasonal, injectable Renuka Gamez ENVIRONMENTAL FIELD SERVICES TECHNICIAN.LAN SUPPORT SPECIALIST Work Phone: [facility] 09-10-2022 influenza virus vacc ine, unspecified formulation Li Cote PA Work Phone: [facility] Payers Date Payer Category Payer Self-pay 2021 Private Health Insurance MMO [employer] PPO [id number] 2021 Unknown MMO MMO PAM [id number] 2021-Present [phone] [address] [address] [place] [address] PPO [id number] 2021 Unknown [id number] 2021 Unknown [id number] Unknown [id number] Unknown [id number] Social History Date Type Detail Facility [facility] consumption unknown [facility] Start: 1990 Sex Assigned At Not on file [facility] Exposure to SARS-CoV -2 (event) Not sure [facility] Start: 08-24-2021 End: 05-11-2023 Tobacco smoking status NHIS Never smoked tobacco [facility] Start: 08-24-2021 End: 05-11-2023 Tobacco use and exposure Smokeless tobacco non-user [facility] Start: 11-15-2022 End: 03-14-2025 Alcohol intake Current drinker of alcohol (finding) [facility] Start: 11-15-2022 End: 06-23-2023 Alcohol intake [facility] Start: 11-13-2022 History SDOH Alcohol Frequency 4 [facility] Start: 11-13-2022 History SDOH Alcohol Std Drinks 1 [facility] Start: 11-13-2022 History SDOH Alcohol Binge 2 [facility] Start: 11-13-2022 History SDOH Social Connections Phone 5 [facility] Start: 11-13-2022 History SDOH Social Connections Get Together 3 [facility] Start: 11-13-2022 End: 06-23-2023 Social connection and isolation panel [facility] Do you belong to any clubs or organizations such as hindu groups, unions, fraternal or athletic groups, or school groups? No [facility] Are you now , , , , never or living with a partner? [facility] How often to you hav e a drink containing alcohol? 2-3 time sa week [facility] How many standard dr inks containing alcohol do you have on a typical day? 1 or 2 [facility] How often do you hav e 6 or more drinks on 1 occasion? Less than monthly [facility] How hard is it for y ou to pay for the very basics like food, housing, medical care, and heating Not hard at all [facility] Do you feel stress - tense, restless, nervous, or anxious, or unable to sleep at night because your mind is troubled all the time - these days [OSQ] Only a little [facility] (I/We) worried wheth er (my/our) food would run out before (I/we) got money to buy more. Never true [facility] How often do you hav e 6 or more drinks on 1 occasion? Monthly [facility] Do you feel stress - tense, restless, nervous, or anxious, or unable to sleep at night because your mind is troubled all the time - these days [OSQ] Not at all [facility] Start: 1990 Sex Assigned At Male [facility] Functional Status Date Assessment Result Facility 03-14-2025 Total score [AUDIT-C] 5 03/14/20 1:25 PM EDT User, [place] [facility] 03-14-2025 How often to you hav e a drink containing alcohol? 2-3 times a week 03/14/2025 1:25 PM EDT User, [place] 2-3 time sa week [facility] 03-14-[address] inks containing alcohol do you have on a typical day? 1 or 2 03/14/2025 1:25 PM EDT User, Mycjuan joset 1 or 2 [facility] 03-14-2025 How often do you hav e 6 or more drinks on 1 occasion? Monthly 03/14/2025 1:25 PM EDT User, [place] Monthly [facility] Clinical Notes 08-22-2021 to 04-19-2025 Telephone Encounter - Darrell Contreras LPN - 04/19/2025 3:11 PM EDTTelephone Encounter - Darrell Contreras LPN - 04/19/2025 3:11 PM EDTTelephone Encounter - Saranya Delcid MA - 04/15/2025 4:10 PM EDT Note Date & Type Note Facility 04-19-2025 Telephone encounter Note Sleep study completed last evening. Pt aware we will notify him once results are received. Also aware provider is out of office until 04/25. [facility] 04-19-2025 Miscellaneous Notes Sleep study completed last evening. Pt aware we will notify him once results are received. Also aware provider is out of office until 04/25. documented in this encounter [facility] 04-15-2025 Telephone encounter Note Order faxed. Saranya Delcid MA [facility] 04-15-2025 Miscellaneous Notes Order faxed. Saranya Delcid MA Order written and ready to be faxed. Mai from [facility] Scheduling calling and states that patient is scheduled for sleep study on Friday. Mai reports that they need a new sleep study order so that they can get it processed through insurance. Renuka wrote previous order on 04/23/2024. Please review and advise, Huma Alvarado RN documented in this encounter [facility] 04-15-2025 Telephone encounter Note Order written and ready to be faxed. [facility] Work Phone: 04-15-2025 Telephone encounter Note Mai from [facility] Scheduling calling and states that patient is scheduled for sleep study on Friday. Mai reports that they need a new sleep study order so that they can get it processed through insurance. Renuka wrote previous order on 04/23/2024. Please review and advise, Huma Alvarado RN [facility] 03-15-2025 Telephone encounter Note Pt active on [employer]- message sent Alysha Chung MA [facility] 03-15-2025 Miscellaneous Notes Pt active on [employer]- message sent Alysha Chung MA Please let patient know their labs are normal. documented in this encounter [facility] 03-15-2025 Telephone encounter Note Please let patient know their labs are normal. [facility] 03-14-2025 Note HNO ID: [id number] Author: RENUKA GAMEZ APRN.KINGSLEY Service: ? Author Type: Nurse Practitioner Type: Progress Notes Filed: 03/14/2025 15:05 Note Text: Chief Complaint Patient presents with: Follow Up HPI Vincent Lezama is a 34 year old male who presents here today for Above Complaints.. Patient presents for wellness visit. Has not been seen since 2022. Back in 2022 he had a home sleep study done and was diagnosed with sleep apnea. Was ordered a cpap, but never heard from the company and did not receive it. Snores at night Mother also was diagnosed with hypothyroidism in the last few years. Patient states that he is often tired but denies sensitivity to heat or cold, or weight changes. Also has young children at home. Seasonal allergies- takes daily zyrtec and uses Flonase as needed. States it is well controlled. Average caffeine intake is 3-5 cups of coffee. Does not follow a particular diet. Does exercise 2-3 times a week, varies activities walking, running, and lifting weights. Reports job is very demanding and does not feel depressed/anxious just overworked. Past medical history, appointments, medications, allergies reviewed. Previous Medical History PAST MEDICAL HISTORY Diagnosis Date History of varicocele Previous Surgical History No past surgical history on file. Family History FAMILY HISTORY Problem Relation Age of Onset Migraines Mother Hypothyroidism Mother No Known Problems Father unknown other (other) Maternal Grandmother spinal ataxia Heart Attack Maternal Grandfather Heart disease Maternal Grandfather other (oth) Maternal Grandfather dissected aorta Patient Allergies ALLERGIES No Known Allergies Current Medications Current Outpatient Medications on File Prior to Visit Medication Sig Cetirizine (ZYRTEC) 10 mg cap Take by mouth. No current facility-administered medications on file prior to visit. Social History Social History Tobacco Use Smoking status: Never Smokeless tobacco: Never Substance Use Topics Alcohol use: Yes Alcohol/week: 3.0 standard drinks of alcohol Types: 2 Cans of beer, 1 Shots of liquor per week Drug use: Never Review of Symptoms REVIEW OF SYSTEMS GENERAL: No weight loss, malaise or fevers/chills HEENT: Negative for frequent or significant headaches, No changes in hearing or vision. NECK: Negative for lumps, goiter, pain and significant neck swelling RESPIRATORY: Negative for cough, hemoptysis, wheezing, dyspnea or shortness of breath CARDIOVASCULAR: Negative for chest pain, leg swelling, orthopnea, or palpitations GI: No nausea, vomiting, or diarrhea/constipation. No hematochezia/melena. No heartburn or reflux symptoms. : No history of dysuria, frequency or incontinence MUSCULOSKELETAL: Routinely has bilateral knee pain that is chronic SKIN: Negative for lesions, rash, and itching ENDOCRINE: Negative for cold or heat intolerance, polyuria, polydipsia and goiter NEURO: Intermittent history of headaches. No syncope, paralysis, seizures or tremors MOOD: Negative for depression, anxiety, or suicidal ideation. EXAM: BP 122/79 Pulse 82 Wt 110 kg (242 lb 8.1 oz) BMI 31.99 kg/m? General Appearance: Well appearing, alert, in no acute distress, well-hydrated, well nourished.. Skin: Skin color, texture, turgor normal, no suspicious rashes or lesions. Head: Normocephalic, no masses, lesions, tenderness or abnormalities. Eyes: Anicteric sclera. Pupils are equally round and reactive to light. Extraocular movements are intact. . Ears: External ears normal, canals clear. Nose/Sinuses: Nares normal, septum midline, mucosa normal, no drainage or sinus tenderness. Oropharynx: Lips, mucosa, and tongue normal, teeth and gums normal, oropharynx normal. Neck: Supple, no adenopathy; thyroid symmetric, normal size, no bruits. Lungs: Lungs clear to auscultation. No wheezing, rhonchi, rales.. Heart: RRR without murmur, gallop, or rubs. No ectopy. Abdomen: Normal abdominal exam, Abdomen soft, non-tender. Bowel sounds normal. No masses, organomegaly. Health Maintenance List DTaP,Tdap,Td Vaccine(5 - Tdap) due on 2000 Depression Screening Never done Anxiety Screening Never done Hepatitis C Screening Never done HIV Screening Never done Covid-19 Vaccine( season) due on 05/30/2024 Influenza Vaccine(Season Ended) due on 05/30/2025 Lipid Screening due on 11/15/2027 Hepatitis B Vaccine Discontinued ASSESSMENT/PLAN: 1. Well adult exam - ICD9: V70.0, ICD10: Z00.00 (primary diagnosis) - Counseled on healthy diet and regular exercise - Discussed need for and benefit of weight loss. BMI 31.99 kg/(m2) - Patient counseled on and acknowledged vaccine benefits/risks/side effects; VIS provided: TdaP - Follow up for annual exam in one year - COMPLETE BLOOD COUNT AND DIFFERENTIAL - COMPREHENSIVE METABOLIC PANEL 2. Screening for depression - ICD9: V79.0, ICD10: (more content not included)... [facility] 03-14-2025 History of Presen t illness Narrative Chief Complaint Patient presents with: Follow Up HPI Vincent Lezama is a 34 year old male who presents here today for Above Complaints.. Patient presents for wellness visit. Has not been seen since 2022. Back in 2022 he had a home sleep study done and was diagnosed with sleep apnea. Was ordered a cpap, but never heard from the company and did not receive it. Snores at night Mother also was diagnosed with hypothyroidism in the last few years. Patient states that he is often tired but denies sensitivity to heat or cold, or weight changes. Also has young children at home. Seasonal allergies- takes daily zyrtec and uses Flonase as needed. States it is well controlled. Average caffeine intake is 3-5 cups of coffee. Does not follow a particular diet. Does exercise 2-3 times a week, varies activities walking, running, and lifting weights. Reports job is very demanding and does not feel depressed/anxious just overworked. Past medical history, appointments, medications, allergies reviewed. Previous Medical History PAST MEDICAL HISTORY Diagnosis Date History of varicocele Previous Surgical History No past surgical history on file. Family History FAMILY HISTORY Problem Relation Age of Onset Migraines Mother Hypothyroidism Mother No Known Problems Father unknown other (other) Maternal Grandmother spinal ataxia Heart Attack Maternal Grandfather Heart disease Maternal Grandfather other (oth) Maternal Grandfather dissected aorta Patient Allergies ALLERGIES No Known Allergies Current Medications Current Outpatient Medications on File Prior to Visit Medication Sig Cetirizine (ZYRTEC) 10 mg cap Take by mouth. No current facility-administered medications on file prior to visit. Social History Social History Tobacco Use Smoking status: Never Smokeless tobacco: Never Substance Use Topics Alcohol use: Yes Alcohol/week: 3.0 standard drinks of alcohol Types: 2 Cans of beer, 1 Shots of liquor per week Drug use: Never Review of Symptoms REVIEW OF SYSTEMS GENERAL: No weight loss, malaise or fevers/chills HEENT: Negative for frequent or significant headaches, No changes in hearing or vision. NECK: Negative for lumps, goiter, pain and significant neck swelling RESPIRATORY: Negative for cough, hemoptysis, wheezing, dyspnea or shortness of breath CARDIOVASCULAR: Negative for chest pain, leg swelling, orthopnea, or palpitations GI: No nausea, vomiting, or diarrhea/constipation. No hematochezia/melena. No heartburn or reflux symptoms. : No history of dysuria, frequency or incontinence MUSCULOSKELETAL: Routinely has bilateral knee pain that is chronic SKIN: Negative for lesions, rash, and itching ENDOCRINE: Negative for cold or heat intolerance, polyuria, polydipsia and goiter NEURO: Intermittent history of headaches. No syncope, paralysis, seizures or tremors MOOD: Negative for depression, anxiety, or suicidal ideation. EXAM: BP 122/79 Pulse 82 Wt 110 kg (242 lb 8.1 oz) BMI 31.99 kg/m General Appearance: Well appearing, alert, in no acute distress, well-hydrated, well nourished.. Skin: Skin color, texture, turgor normal, no suspicious rashes or lesions. Head: Normocephalic, no masses, lesions, tenderness or abnormalities. Eyes: Anicteric sclera. Pupils are equally round and reactive to light. Extraocular movements are intact. . Ears: External ears normal, canals clear. Nose/Sinuses: Nares normal, septum midline, mucosa normal, no drainage or sinus tenderness. Oropharynx: Lips, mucosa, and tongue normal, teeth and gums normal, oropharynx normal. Neck: Supple, no adenopathy; thyroid symmetric, normal size, no bruits. Lungs: Lungs clear to auscultation. No wheezing, rhonchi, rales.. Heart: RRR without murmur, gallop, or rubs. No ectopy. Abdomen: Normal abdominal exam, Abdomen soft, non-tender. Bowel sounds normal. No masses, organomegaly. Health Maintenance List DTaP,Tdap,Td Vaccine(5 - Tdap) due on 2000 Depression Screening Never done Anxiety Screening Never done Hepatitis C Screening Never done HIV Screening Never done Covid-19 Vaccine(2023- season) due on 05/30/2024 Influenza Vaccine(Season Ended) due on 05/30/2025 Lipid Screening due on 11/15/2027 Hepatitis B Vaccine Discontinued ASSESSMENT/PLAN: 1. Well adult exam - ICD9: V70.0, ICD10: Z00.00 (primary diagnosis) - Counseled on healthy diet and regular exercise - Discussed need for and benefit of weight loss. BMI 31.99 kg/(m^2) - Patient counseled on and acknowledged vaccine benefits/risks/side effects; VIS provided: TdaP - Follow up for annual exam in one year - COMPLETE BLOOD COUNT AND DIFFERENTIAL - COMPREHENSIVE METABOLIC PANEL 2. Screening for depression - ICD9: V79.0, ICD10: Z13.31 - DEPRESSION SCREENING 3. Encounter for screening examination for other mental health and behavioral disorders - ICD9: V79.8, ICD10: Z13.39 - ANXIETY SCREENING 4. Encounter for immunization - ICD9: V03.89, ICD10: Z23 - TDAP VACCINE, AGE 7+ YR (ADACEL, BOOSTRIX) 5. FH: hypothyroidism - ICD9: V18.19, ICD10: Z83.49 - THYROID STIMULATING HORMONE - T3 - T4 FREE/FREE THYROXINE 6. Screening for lipid disorders - ICD9: V77.91, ICD10: Z13.220 - LIPID PANEL, NONFASTING Renuka Gamez APRN.LAN SUPPORT SPECIALIST documented in this encounter [facility] 11-20-2024 Telephone encounter Note The following approved medication requests have been transmitted electronically. Requested Prescriptions Signed Prescriptions Disp Refills oseltamivir (TAMIFLU) 75 mg capsule 7 capsule 0 Sig: Take 1 capsule by mouth once daily for 7 days. Authorizing Provider: CLEVELAND KENNEDY DO [facility] 11-20-2024 Miscellaneous Notes The following approved medication requests have been transmitted electronically. Requested Prescriptions Signed Prescriptions Disp Refills oseltamivir (TAMIFLU) 75 mg capsule 7 capsule 0 Sig: Take 1 capsule by mouth once daily for 7 days. Authorizing Provider: CLEVELAND KENNEDY DO Pt's child tested positive for influenza and his spouse is . Wonders if he can get a Rx for Tamiflu as discussed in a my chart message? Pharmacy info was verified. documented in this encounter [facility] 11-20-2024 Telephone encounter Note Pt's child tested positive for influenza and his spouse is . Wonders if he can get a Rx for Tamiflu as discussed in a my chart message? Pharmacy info was verified. [facility] 04-23-2024 Telephone encounter Note Sleep study in [facility] done November 2022. See [employer] message Saranya Delcid MA [facility] 04-23-2024 Miscellaneous Notes Sleep study in [facility] done November 2022. See [employer] message Saranya Delcid MA documented in this encounter [facility] 09-17-2023 History of Presen t illness Narrative This note was created using [employer]. Subjective Vincent Lezama is a 33 year old male. HPI 33-year-old male presents for congestion, postnasal drainage, fever and headache. Patient states yesterday afternoon he started getting symptoms of headache, fever and a little bit of congestion. He has a little bit of postnasal drip. No really a cough. He denies any known exposure to flu or COVID. Did not do home COVID test. He denies any vomiting or diarrhea. No chest pain or shortness of breath. No other complaint. PAST MEDICAL HISTORY Diagnosis Date History of varicocele No past surgical history on file. ALLERGIES Patient has no known allergies. MEDICATIONS fluticasone (FLONASE) 50 mcg/actuation nasal spray Use 2 Sprays in each nostril once daily. Rinse mouth after use. Cetirizine (ZYRTEC) 10 mg cap Take by mouth. Multivitamin capsule Take 1 capsule by mouth once daily. FAMILY HISTORY Problem Relation Age of Onset Migraines Mother No Known Problems Father unknown other (other) Maternal Grandmother spinal ataxia Heart Attack Maternal Grandfather Heart disease Maternal Grandfather other (oth) Maternal Grandfather dissected aorta Social History Tobacco Use Smoking status: Never Smokeless tobacco: Never Substance Use Topics Alcohol use: Yes Alcohol/week: 3.0 standard drinks of alcohol Types: 2 Cans of beer, 1 Shots of liquor per week Drug use: Never Review of Systems Constitutional: Positive for fever. Negative for chills. HENT: Positive for congestion and postnasal drip. Negative for sore throat. Respiratory: Negative for cough and shortness of breath. Gastrointestinal: Negative for diarrhea and vomiting. Neurological: Positive for headaches. Objective BP 126/82 Pulse 92 Temp 36.6 C (97.9 F) Resp 16 Wt 110.7 kg (244 lb) SpO2 95% BMI 32.19 kg/m Physical Exam Vitals and nursing note reviewed. Constitutional: General: He is not in acute distress. Appearance: Normal appearance. He is not toxic-appearing. HENT: Right Ear: Tympanic membrane and ear canal normal. Left Ear: Tympanic membrane and ear canal normal. Nose: Congestion present. Mouth/Throat: Mouth: Mucous membranes are moist. Pharynx: No oropharyngeal exudate or posterior oropharyngeal erythema. Eyes: Conjunctiva/sclera: Conjunctivae normal. Cardiovascular: Rate and Rhythm: Normal rate and regular rhythm. Pulmonary: Effort: Pulmonary effort is normal. Breath sounds: Normal breath sounds. No wheezing, rhonchi or rales. Skin: General: Skin is warm and dry. Neurological: Mental Status: He is alert. Assessment and Plan ASSESSMENT/PLAN: 1. URI, acute - ICD9: 465.9, ICD10: J06.9 - Discussed viral etiology and rationale for treatment. - Symptomatic treatment with prn analgesia - Supportive care with fluids and rest - COVID & INFLUENZA A/B & RSV NAAT, ROUTINE -In window for Tamiflu until evening of 09/18. -Not a candidate for antiviral. Discussed supportive treatment if COVID-positive. Diagnosis and treatment plan were discussed and questions were answered to the patient's satisfaction. Pt acknowledged understanding of concepts and follow up plan. Specific signs and symptoms that would indicate the need for higher level of care were discussed in detail warranting prompt ER evaluation. MARY Lopez documented in this encounter [facility] 06-05-2023 History of Presen t illness Narrative Subjective HPI HPI Vincent Lezama is a 33 year old male who presents today for CC of bilat ear pressure. This started 5 days ago. Has tried otc medication for relief. Symptoms are worsened by nothing. Risk factors hx of OM, sinus allergies. Denies uri symptoms .Patient presents with: Ear Problem: Bilateral ear issue x 5 days PAST MEDICAL HISTORY Diagnosis Date History of varicocele No past surgical history on file. ALLERGIES Patient has no known allergies. MEDICATIONS Multivitamin capsule Take 1 capsule by mouth once daily. Cetirizine (ZYRTEC) 10 mg cap Take by mouth. (Patient not taking: Reported on 06/05/2023) FAMILY HISTORY Problem Relation Age of Onset Migraines Mother No Known Problems Father unknown other (other) Maternal Grandmother spinal ataxia Heart Attack Maternal Grandfather Heart disease Maternal Grandfather other (oth) Maternal Grandfather dissected aorta Social History Tobacco Use Smoking status: Never Smokeless tobacco: Never Substance Use Topics Alcohol use: Yes Alcohol/week: 3.0 standard drinks of alcohol Types: 2 Cans of beer, 1 Shots of liquor per week Drug use: Never Review of Systems Constitutional: Negative for fever. HENT: Positive for congestion and ear pain. Negative for ear discharge, nosebleeds and sore throat. Respiratory: Negative for cough, shortness of breath and wheezing. Musculoskeletal: Negative for neck pain. Objective Blood pressure 122/90, pulse 97, temperature 36.2 C (97.2 F), resp. rate 21, weight 110.7 kg (244 lb), SpO2 98 %. Physical Exam Constitutional: General: He is not in acute distress. Appearance: He is not toxic-appearing or diaphoretic. HENT: Head: Normocephalic and atraumatic. Right Ear: Hearing, tympanic membrane, ear canal and external ear normal. Left Ear: Hearing, tympanic membrane, ear canal and external ear normal. Nose: Nose normal. Mouth/Throat: Lips: Poth. Mouth: Mucous membranes are moist. Pulmonary: Effort: Pulmonary effort is normal. No accessory muscle usage or respiratory distress. Lymphadenopathy: Cervical: No cervical adenopathy. Right cervical: No superficial cervical adenopathy. Left cervical: No superficial cervical adenopathy. Neurological: Mental Status: He is alert and oriented to person, place, and time. ASSESSMENT/PLAN: 1. ETD (Eustachian tube dysfunction), bilateral - ICD9: 381.81, ICD10: H69.93 -use medication as prescribed -follow up if symptoms persist, worsen, change - PREDNISONE 10 MG TABLET - FLUTICASONE PROPIONATE 50 MCG/ACTUATION NASAL SPRAY,SUSPENSION Matthias Garay APRN.LAN SUPPORT SPECIALIST documented in this encounter [facility] 05-11-2023 History of Presen t illness Narrative This note was created using [email or web address]. Subjective Vincent Lezama is a 32 year old male. 32 year old male with no PMH presents for complaints of illness. Acute onset 5 days ago +bilateral ear congestion and pain. +sinus pressure +post nasal drainage. +cough at night time related to post nasal drainage. +body aches-back and legs Denies fever or chills. COVID test home was negative. The history is provided by the patient. No speech and language specialist was used. Sinus Problem This is a new problem. The current episode started in the past 7 days. The problem occurs constantly. The problem has been gradually worsening. Associated symptoms include congestion, coughing and fatigue. Pertinent negatives include no abdominal pain, anorexia, arthralgias, change in bowel habit, chest pain, chills, diaphoresis, fever, headaches, joint swelling, myalgias, nausea, neck pain, numbness, rash, sore throat, swollen glands, urinary symptoms, vertigo, visual change, vomiting or weakness. Nothing aggravates the symptoms. He has tried nothing for the symptoms. The treatment provided no relief. PAST MEDICAL HISTORY Diagnosis Date History of varicocele No past surgical history on file. ALLERGIES Patient has no known allergies. MEDICATIONS Multivitamin capsule Take 1 capsule by mouth once daily. Cetirizine (ZYRTEC) 10 mg cap Take by mouth. amoxicillin-clavulanic acid (AUGMENTIN) 875-125 mg per tablet Take 1 tablet by mouth twice daily for 7 days. FAMILY HISTORY Problem Relation Age of Onset Migraines Mother No Known Problems Father unknown other (other) Maternal Grandmother spinal ataxia Heart Attack Maternal Grandfather Heart disease Maternal Grandfather other (oth) Maternal Grandfather dissected aorta Social History Tobacco Use Smoking status: Never Smokeless tobacco: Never Substance Use Topics Alcohol use: Yes Alcohol/week: 3.0 standard drinks of alcohol Types: 2 Cans of beer, 1 Shots of liquor per week Drug use: Never Review of Systems Constitutional: Positive for fatigue. Negative for chills, diaphoresis and fever. HENT: Positive for congestion and ear pain. Negative for postnasal drip, rhinorrhea, sinus pressure, sinus pain and sore throat. Eyes: Negative for photophobia, pain, discharge, redness and itching. Respiratory: Positive for cough. Cardiovascular: Negative for chest pain. Gastrointestinal: Negative for abdominal pain, anorexia, change in bowel habit, nausea and vomiting. Musculoskeletal: Negative for arthralgias, joint swelling, myalgias and neck pain. Skin: Negative for rash. Allergic/Immunologic: Negative for environmental allergies, food allergies and immunocompromised state. Neurological: Negative for vertigo, weakness, numbness and headaches. Hematological: Negative for adenopathy. Does not bruise/bleed easily. Psychiatric/Behavioral: Negative for agitation and behavioral problems. Objective BP 134/82 Pulse 88 Temp 36.4 C (97.6 F) Resp 16 Wt 108 kg (238 lb) SpO2 97% BMI 31.40 kg/m Physical Exam Vitals and nursing note reviewed. Constitutional: General: He is not in acute distress. Appearance: Normal appearance. He is not ill-appearing, toxic-appearing or diaphoretic. HENT: Head: Normocephalic and atraumatic. Right Ear: External ear normal. Ears: Comments: Left TM erythematous and bulging. Nose: Nose normal. No congestion or rhinorrhea. Mouth/Throat: Mouth: Mucous membranes are moist. Pharynx: Oropharynx is clear. No oropharyngeal exudate or posterior oropharyngeal erythema. Eyes: General: Right eye: No discharge. Left eye: No discharge. Extraocular Movements: Extraocular movements intact. Conjunctiva/sclera: Conjunctivae normal. Pupils: Pupils are equal, round, and reactive to light. Cardiovascular: Rate and Rhythm: Normal rate and regular rhythm. Pulses: Normal pulses. Heart sounds: Normal heart sounds. No murmur heard. No friction rub. No gallop. Pulmonary: Effort: Pulmonary effort is normal. No respiratory distress. Breath sounds: Normal breath sounds. No stridor. No wheezing, rhonchi or rales. Chest: Chest wall: No tenderness. Abdominal: General: Abdomen is flat. There is no distension. Palpations: Abdomen is soft. There is no mass. Tenderness: There is no abdominal tenderness. There is no guarding or rebound. Hernia: No hernia is present. Musculoskeletal: General: No swelling, tenderness, deformity or signs of injury. Normal range of motion. Cervical back: Normal range of motion and neck supple. No rigidity or tenderness. Right lower leg: No edema. Left lower leg: No edema. Lymphadenopathy: Cervical: No cervical adenopathy. Skin: General: Skin is warm and dry. Capillary Refill: Capillary refill takes less than 2 seconds. Coloration: Skin is not jaundiced or pale. Findings: No bruising, lesion or rash. Neurological: General: No focal deficit present. Mental Status: He is alert and oriented to person, place, and time. Cranial Nerves: No cranial nerve deficit. Sensory: No sensory deficit. Motor: No weakness. Coordination: Coordination normal. Gait: Gait normal. Deep Tendon Reflexes: Reflexes normal. Psychiatric: Mood and Affect: Mood normal. Behavior: Behavior normal. Thought Content: Thought content normal. Assessment and Plan ASSESSMENT/PLAN: 1. Acute otitis media, left - ICD9: 382.9, ICD10: H66.92 (primary diagnosis) - Will begin treatment with as per antibiotic as written, see orders - The patient should also be given OTC cough and cold meds as needed and warm salt water gargles, throat lozenges and/or OTC throat spray as needed for the first 5-7 days of treatment. - Supportive care with plenty of fluids, rest, and analgesia prn. - Follow up in 3-5 days if symptoms persist or worsen. 2. Rhinosinusitis - ICD9: 473.9, ICD10: J31.0, J32.9 - Will begin treatment with as per antibiotic as written, see orders - The patient should also be given OTC cough and cold meds as needed, warm salt water gargles, throat lozenges and/or OTC throat spray as needed, and nasal saline gtts and suction prn for the first 5-7 days of treatment. - Supportive care with plenty of fluids, rest, and analgesia prn. - Follow up in 3-5 days if symptoms persist or worsen. Elva Pizarro APRN.LAN SUPPORT SPECIALIST documented in this encounter [facility] 01-07-2023 Miscellaneous Notes Patient returned call and requesting to use [employer] in [place] as DME company. CPAP orders are pending. Please submit orders and information to [facility] when able. Thank you. Follow up call made to patient- he states he will call his insurance company today and let us know which DME he would like the order sent to Alysha Chung Cma I have pended the orders until DME company is determined. Pt called and is notified of providers results and instructions. Pt voices understanding. Pt states he would like provider to put in order for Cpap, and he will call Insurance and find out what DME they use. Keturah Vázquez RN Please let patient know his sleep apnea is mild. I would recommend weight loss as well elevating the head of his bed as the apnea is worse while lying flat. If patient is willing I can order cpap for him to wear while his sleeping but this will have to be approved through his insurance. documented in this encounter [facility] 12-05-2022 History of Presen t illness Narrative Sleep Study Check-In Documentation Date: December 05, 2022 Name: Vincent Lezama Comments: HST was returned in working order with all sleep questionnaires Walter Brenner Nomad: [id number] Date: 12/02/22 [employer] Mailout Tracking Number: [id number] [employer] Return Tracking Number: [id number] November 18, 2022 Standing PSG Orders signed in the last 90 days None Future PSG Orders signed in the last 90 days Ordered Auth. provider HOME SLEEP APNEA TEST (HSAT) [[id number]] 11/15/22 Renuka Gamez APRN.LAN SUPPORT SPECIALIST Assoc. diagnoses: Snoring [R06.83] Q: Indications: A: Obstructive sleep apnea Q: STOP-BANG conditions - Select All That Apply: A: GENDER = male Q: Current use of supplemental oxygen during sleep period?: A: No All Prior Sleep Studies (past 365 days) Some values may be hidden. Unless noted otherwise, only the newest values recorded on each date are displayed. Sleep Studies HOME SLEEP APNEA TEST (HSAT) Future Expected: Expires: 11/15/23 BMI Readings from Last 2 Encounters: 11/15/22 : 31.53 kg/m 08/24/21 : 28.10 kg/m PAST MEDICAL HISTORY Diagnosis Date History of varicocele The medical record was reviewed to determine if the proposed sleep study conforms to the AASM Practice Parameters for the Indications for Polysomnography and Related Procedures, or if the sleep study is indicated for other reasons. Indications for study: FOSTER suspected without comorbid medical or sleep disorders Sleep study to be performed: Home Sleep Apnea Test (HSAT) Special instructions: None-follow laboratory protocol Daniela Gomez - Sleep Medicine Staff Note: I have read the above protocol, edited as needed, and agree to the plan. Bertrand Mcfarland III, PhD 3:45 PM, 11/18/2022 November 18, 2022 An order has been received for Home Sleep Apnea Test (HSAT) from carmen Malhotra. [facility] Staff. Visit prep complete. Comments :No The sleep study is scheduled for 12/03. Insurance: Payor: MMO / Plan: MMO SUPERMED PLUS / Product Type: PPO / Payer/Plan Subscr Sex Relation Sub. Ins. ID Effective Group Num 1. MMO - MMO SUP* JUN LEZAMA 1990 Female Spouse [id number] 05/30/[birth year] [id number] [address] Debbie López documented in this encounter [facility] 11-18-2022 Miscellaneous Notes Patient active on [employer]- message sent Alysha Chung Cma Please let patient know that his labs are normal. documented in this encounter [facility] 11-15-2022 Instructions Renuka Gamez APRN.CNP - 11/15/2022 8:39 AM EST Complete labs Complete home sleep apnea Follow up in 1 year documented in this encounter [facility] 11-15-2022 History of Presen t illness Narrative Chief Complaint Patient presents with: [facility] HPI Vincent Lezama is a 32 year old male who presents here today for Above Complaints.. [facility]. Patient reports that he has had borderline elevated BP for years, SBP ranges 120-130. Patient takes BP at home daily. Past medical history, appointments, medications, allergies reviewed. Previous Medical History No past medical history on file. Previous Surgical History No past surgical history on file. Family History No family history on file. Patient Allergies ALLERGIES No Known Allergies Current Medications No current outpatient medications on file prior to visit. No current facility-administered medications on file prior to visit. Social History Social History Tobacco Use Smoking status: Never Smokeless tobacco: Never Review of Symptoms REVIEW OF SYSTEMS GENERAL: No weight loss, malaise or fevers NECK: Negative for lumps, goiter, pain and significant neck swelling RESPIRATORY: Negative for cough, hemoptysis, wheezing, COPD, dyspnea or shortness of breath CARDIOVASCULAR: Negative for chest pain, leg swelling, hypertension, CHF or palpitations GI: No nausea, vomiting, or diarrhea MUSCULOSKELETAL: Negative for joint pain or swelling, back pain or muscle pain SKIN: Negative for lesions, rash, and itching PSYCH: Negative for sleep disturbance, mood disorder and recent psychosocial stressors HEMATOLOGY/LYMPHOLOGY: Negative for prolonged bleeding, bruising easily or swollen nodes ENDOCRINE: Negative for cold or heat intolerance, polyuria, polydipsia and goiter NEURO: Tension headaches Reports complains of excessive snoring, apnea EXAM: BP 130/74 Pulse 90 Resp 14 Wt 108.4 kg (239 lb) BMI 31.53 kg/m General Appearance: Well appearing, alert, in no acute distress, well-hydrated, well nourished.. Skin: Skin color, texture, turgor normal, no suspicious rashes or lesions. Nose/Sinuses: Nares normal, septum midline, mucosa normal, no drainage or sinus tenderness. Oropharynx: Lips, mucosa, and tongue normal, teeth and gums normal, oropharynx normal. Neck: Supple, no adenopathy; thyroid symmetric, normal size, no bruits. Lungs: Lungs clear to auscultation. No wheezing, rhonchi, rales.. Heart: RRR without murmur, gallop, or rubs. No ectopy. Abdomen: Normal abdominal exam, Abdomen soft, non-tender. Bowel sounds normal. No masses, organomegaly. Extremities: No deformities, edema, skin discoloration, clubbing or cyanosis. Good capillary refill. . Musculoskeletal: No joint swelling, deformity, or tenderness. Peripheral Pulses: Normal. Neurologic: Gait normal. Reflexes normal and symmetric. Sensation grossly intact.. Health Maintenance List HEPATITIS B(1 of 3 - 3-dose series) Never done COVID-19 VACCINE(1) Never done HEPATITIS C SCREENING Never done HIV SCREENING Never done DTAP,TDAP,TD(1 - Tdap) Never done DEPRESSION ASSESSMENT Never done INFLUENZA Completed ASSESSMENT/PLAN: 1. Wellness examination - ICD9: V70.0, ICD10: Z00.00 (primary diagnosis) - Counseled on healthy diet and regular exercise - Discussed need for and benefit of weight loss. BMI 31.53 kg/(m^2) - Counseled on limiting alcohol intake to 2 drinks per day - Depression screening tool completed and reviewed with patient. Based on score and interview, patient is not at risk for depression and recommended no further intervention at this time. - Follow up for annual exam in one year - CBC + DIFF - COMP METABOLIC PANEL 2. Snoring - ICD9: 786.09, ICD10: R06.83 Weight increasing - Behavioral intervention - HOME SLEEP APNEA TEST (HSAT) 3. Encounter for lipid screening for cardiovascular disease - ICD9: V77.91, V81.2, ICD10: Z13.220, Z13.6 - LIPID PANEL, NONFASTING 4. Screening for diabetes mellitus - ICD9: V77.1, ICD10: Z13.1 - HGB A1C Renuka Gamez APRN.LAN SUPPORT SPECIALIST documented in this encounter [facility] 08-24-2021 History of Presen t illness Narrative Images from the original note were not included. [facility] LOCATION: [facility] [address], [address], [place] [address] NEW CONSULT VISIT PATIENT INFO: Vincentmike Lezama 31 year old PCP: Cleveland Kennedy DO Consultation requested by Dr. Cleveland Kennedy DO and my final recommendations will be communicated back to the requesting physician by way of shared medical record or letter via US mail. Chief Complaint: bilateral testicular pain HPI Here for testicular pain. For one month. Driving from [facility] to [place]. 1-Duration: 2020 2-Location: testis 3-Severity: N/A 4-Quality: Not applicable 5-Context: N/A 6-Timing: N/A 7-Modifying factors: No treatment prior to referral 8-Associated signs & symptoms: no additional symptoms PATHOLOGY: N/A LAB: No results found for: WBC, RBC, HB, HCT, MCV, MCH, MCHC, RDWCV, PLT, MPV, NEUTP, LYMPHP, MONOP, EODINP, BASOP, ABSNEUT, ABSLYM, ABSMONO, ABSEOSIN, ABSBASO URINE POC GLUCOSE UA (POCT) Negative 08/24/2021 BILIRUBIN UA (POCT) Negative 08/24/2021 KETONE UA (POCT) Negative 08/24/2021 SPECIFIC GRAVITY UA (POCT) <=1.005 08/24/2021 HEMOGLOBIN/BLOOD UA (POCT) Negative 08/24/2021 PH UA (POCT) 6.5 08/24/2021 PROTEIN UA (POCT) Negative 08/24/2021 UROBILINOGEN UA (POCT) 0.2 08/24/2021 NITRITE UA (POCT) Negative 08/24/2021 LEUKOCYTES UA (POCT) Negative 08/24/2021 COLOR UA (POCT) Yellow 08/24/2021 CLARITY UA (POCT) Clear 08/24/2021 IMAGING: Testicular Ultrasound: IMPRESSION: Equivocal left-sided varicocele. Small left-sided hydrocele. Otherwise, normal sonographic appearance of the scrotal contents. Normal arterial and venous flow within both testes. I have independently reviewed films and my findings are the same. ALLERGIES: ALLERGIES No Known Allergies MEDICATIONS: No prescriptions on file. Does the patient take any herbal medications?: No Medication list reviewed and reconciled with patient: Yes HISTORIES No past medical history on file. No past surgical history on file. No family history on file. Negative family history: No SOCIAL HISTORY Social History Tobacco Use Smoking status: Never Smoker Smokeless tobacco: Never Used Substance Use Topics Alcohol use: Not on file Drug use: Not on file Smoking Status Reviewed: Yes REVIEW OF SYSTEMS: GENERAL: No fever, chills, weight loss, or fatigue. HEAD & NECK: No blurred vision or Sjogren's syndrome CARDIOVASCULAR: NO CHEST PAIN, PALPITATIONS, ANKLE EDEMA RESPIRATORY: No chronic cough, wheezing, dyspnea, hemoptysis. MUSCULOSKELETAL: NO CHRONIC BACK PAIN, ARTHRITIS, CHRONIC NECK PAIN SKIN: NO VARICOSE VEINS, RASH, ABNORMAL ITCHING BLOOD/LYMPHATIC: No easy bleeding, easy bruising, transfusion Hx NEUROLOGICAL: NO HEADACHES, NUMBNESS, SEIZURES, STROKE PSYCHIATRIC: No depression or inordinate anxiety The remainder of the ROS was negative. PHYSICAL EXAMINATION Ht 185.4 cm (6' 1) Wt 96.6 kg (213 lb) BMI 28.10 kg/m General appearance: Well appearing, alert, in no acute distress and well-hydrated, well nourished Skin: Skin color, texture, turgor normal, no suspicious rashes or lesions Head: Normocephalic, no masses, lesions, tenderness or abnormalities Neck: Supple, no adenopathy; thyroid symmetric, normal size, no bruits Lungs: Clear to auscultation no wheezing or rhonchi Heart: RRR without murmur, gallop, or rubs. No ectopy Abdomen: Normal abdominal exam, Abdomen soft, non-tender. Bowel sounds normal. No masses, organomegaly Extremities: Extremities normal. No deformities, edema, or skin discoloration. Good capillary refill. Genitourinary: Hydroceles: Left Varicoceles: Left Small Varicocele and hydrocele PVR: NA IMPRESSION/PLAN: Left testicular pain > right. Varicocele/hydrocele small. Precautions given. Scrotal support. F/U PRN. I spent 45 minutes in the visit, with more than 50% of the total [id number] time of the visit in counseling / coordination of care. Katelyn Dallas DO [facility] Letter to: No primary care provider on file. documented in this encounter [facility] 08-22-2021 Miscellaneous Notes Radiology Service Progress Note PATIENT NAME: Vincent Lezama DATE OF SERVICE: August 22, 2021 TIME: 12:23 PM PATIENT IDENTITY VERIFICATION COMPLETED USING TWO (2) IDENTIFIERS: Name and Date of confirmed by patient verbally. FALL SCREENING: Has the patient had 2 falls in the last year or 1 fall with injury or currently using an Ambulatory Assistive Device (Walker, Cane, Wheelchair, Crutches, etc.)? No PATIENT GENDER DATA: Male PATIENT RELEVANT IMPLANT DATA REVIEWED: Not Applicable RADIOLOGY DEPARTMENT: Ultrasound PERIPHERAL IV DATA: Not applicable SIGNED BY: RT Markell(R) August 22, 2021 12:23 PM documented in this encounter [facility] Evaluation note Diagnosis Pain in testicle, unspecified laterality [facility] Diagnosis Pain in testicle, unspecified laterality- Primary [facility] [place] [facility] Diagnosis Wellness examination- Primary Snoring Other dyspnea and respiratory abnormality Encounter for lipid screening for cardiovascular disease Screening for lipoid disorders Screening for diabetes mellitus [facility] [place]* Diagnosis FOSTER (obstructive sleep apnea)- Primary Obstructive sleep apnea (adult) (pediatric) documented in this encounter [facility] note* Diagnosis Acute otitis media, left- Primary Unspecified otitis media Rhinosinusitis Unspecified sinusitis (chronic) documented in this encounter [facility] note* Diagnosis ETD (Eustachian tube dysfunction), bilateral- Primary documented in this encounter [facility] note* Diagnosis URI, acute- Primary Acute upper respiratory infections of unspecified site [facility] [place] [facility]* Diagnosis FOSTER (obstructive sleep apnea)- Primary Obstructive sleep apnea (adult) (pediatric) [facility] [place] [facility]* Diagnosis Well adult exam- Primary Routine general medical examination at a health care facility Screening for depression Encounter for screening examination for other mental health and behavioral disorders Encounter for immunization Need for other specified prophylactic vaccination against single bacterial disease FH: hypothyroidism Family history of other endocrine and metabolic diseases Screening for lipid disorders Obesity, Class I, BMI 30-34.9 Obesity, unspecified documented in this encounter [facility] noteNo assessment information availableWSCCI Hospital [facility] Work Phone: Reason for referral (narrative)* Diagnostic Procedure Only (Routine) - Closed Specialty Diagnoses / Procedures Referred By Raquel campos Referred To Contact US IMAGING Diagnoses Pain in testicle, unspecified laterality Procedures US DOPPLER COMPLETE RENAL/MESENTERIC Katelyn Dallas DO [address] [place] [address] [facility] Referral ID Status Reason Start Date Expiration Date V isits Requested Visits Authorized [id number] Closed Auto-Generate d Referral 08/21/2021 09/20/2022 1 1 * Diagnostic Procedure Only (Routine) - Closed Specialty Diagnoses / Procedures Referred By Raquel t Referred To Contact US IMAGING Diagnoses Pain in testicle, unspecified laterality Procedures US SCROTUM AND CONTENTS ULTRASOUND OF THE TESTICLES Katelyn Dallas DO [address] [place] [address] [facility] Referral ID Status Reason Start Date Expiration Date V isits Requested Visits Authorized [id number] Closed Auto-Generate d Referral 08/21/2021 09/20/[address] [facility] for referral (narrative)* Diagnostic Procedure Only (Routine) - Pending Review Specialty Diagnoses / Procedures Referred By Contac t Referred To [facility] Diagnoses Snoring Procedures HOME SLEEP APNEA TEST (HSAT) SLEEP STD AIRFLOW HRT RATE&O2 SAT EFFORT Renuka Martin APRN.LAN SUPPORT SPECIALIST [address] [place] [address] [facility] [address] [id number] Referral ID Status Reason Start Date Expiration Date Visits Requested Visits Authorized [id number] Pending Review Auto-Generat ed Referral 11/15/2022 11/15/2023 1 1 Electronically signed by Renuka Gamez ENVIRONMENTAL FIELD SERVICES TECHNICIAN.LAN SUPPORT SPECIALIST at 11/15/2022 8:[address] [facility] for referral (narrative)No reason for referral information availableWSCCI [facility] Work Phone: Reklgy for visit Narrative* Diagnostic Procedure Only (Routine) - Closed Specialty Diagnoses / Procedures Referred By Raquel t Referred To Contact [facility] Diagnoses Pain in testicle, unspecified laterality Procedures US DOPPLER COMPLETE RENAL/MESENTERIC Katelyn Dallas DO [address] [place] [address] [facility] Referral ID Status Reason Start Date Expiration Date V isits Requested Visits Authorized [id number] Closed Auto-Generate d Referral 08/21/2021 09/20/2022 1 1 [facility] Summary Purpose Family History No Family History Records FoundNo Family History Records Found Advance Directives No Advanced Directives Records FoundNo Advanced Directives Records Found Chief Complaint and Reason for Visit Chief Complaint Admit Date FOSTER April 18, 2025 7:53 pm Additional Source Comments Source Comments (unrecognize d section and content) In the event this informatio n is protected by the Federal Confidentiality of Alcohol and Drug Abuse Patient Records regulations: The Federal rules restrict any use of the information to criminally investigate or prosecute any alcohol or drug abuse patient.[facility] the event this information is protected by the Federal Confidentiality of Alcohol and Drug Abuse Patient Records regulations: The Federal rules restrict any use of the information to criminally investigate or prosecute any alcohol or drug abuse patient.[facility] the event this information is protected by the Federal Confidentiality of Alcohol and Drug Abuse Patient Records regulations: The Federal rules restrict any use of the information to criminally investigate or prosecute any alcohol or drug abuse patient.[facility] the event this information is protected by the Federal Confidentiality of Alcohol and Drug Abuse Patient Records regulations: The Federal rules restrict any use of the information to criminally investigate or prosecute any alcohol or drug abuse patient.[facility] the event this information is protected by the Federal Confidentiality of Alcohol and Drug Abuse Patient Records regulations: The Federal rules restrict any use of the information to criminally investigate or prosecute any alcohol or drug abuse patient.[facility] the event this information is protected by the Federal Confidentiality of Alcohol and Drug Abuse Patient Records regulations: The Federal rules restrict any use of the information to criminally investigate or prosecute any alcohol or drug abuse patient.[facility] the event this information is protected by the Federal Confidentiality of Alcohol and Drug Abuse Patient Records regulations: The Federal rules restrict any use of the information to criminally investigate or prosecute any alcohol or drug abuse patient.[facility] the event this information is protected by the Federal Confidentiality of Alcohol and Drug Abuse Patient Records regulations: The Federal rules restrict any use of the information to criminally investigate or prosecute any alcohol or drug abuse patient.[facility] the event this information is protected by the Federal Confidentiality of Alcohol and Drug Abuse Patient Records regulations: The Federal rules restrict any use of the information to criminally investigate or prosecute any alcohol or drug abuse patient.[facility] the event this information is protected by the Federal Confidentiality of Alcohol and Drug Abuse Patient Records regulations: The Federal rules restrict any use of the information to criminally investigate or prosecute any alcohol or drug abuse patient.[facility] the event this information is protected by the Federal Confidentiality of Alcohol and Drug Abuse Patient Records regulations: The Federal rules restrict any use of the information to criminally investigate or prosecute any alcohol or drug abuse patient.[facility] the event this information is protected by the Federal Confidentiality of Alcohol and Drug Abuse Patient Records regulations: The Federal rules restrict any use of the information to criminally investigate or prosecute any alcohol or drug abuse patient.[facility] the event this information is protected by the Federal Confidentiality of Alcohol and Drug Abuse Patient Records regulations: The Federal rules restrict any use of the information to criminally investigate or prosecute any alcohol or drug abuse patient.[facility] the event this information is protected by the Federal Confidentiality of Alcohol and Drug Abuse Patient Records regulations: The Federal rules restrict any use of the information to criminally investigate or prosecute any alcohol or drug abuse patient.[facility] the event this information is protected by the Federal Confidentiality of Alcohol and Drug Abuse Patient Records regulations: The Federal rules restrict any use of the information to criminally investigate or prosecute any alcohol or drug abuse patient.[facility] Reason for Visit (unrecogniz ed section and content) Reason Comments Testicular Pain Reason Comments Establish Care Reason Comments Results Reason Comments HSAT Check In (Adult) Reason Comments Sinus Problem sinus pressure and d rainage x 5 days Reason Comments Ear Problem Bilateral ear issue x 5 days Reason Comments Headache fever x 1 day Reason Comments Tamiflu Rx Reason Comments Follow Up Reason Comments Orders Care Teams (unrecognized sec tion and content) Process Development Engineer Relationship Specialty Start Date End Date Renuka Gamez APRN.LAN SUPPORT SPECIALIST [address] [place] [address] [id number] PCP - General Family Medicine 11/15/22 Process Development Engineer Relationship Specialty Start Date End Date Renuka Gamez APRN.LAN SUPPORT SPECIALIST [address] [place] [address] [id number] PCP - General Family Medicine 11/15/22 Process Development Engineer Relationship Specialty Start Date End Date Renuka Gamez APRN.LAN SUPPORT SPECIALIST [address] [place] [address] [id number] PCP - General Family Medicine 11/15/22 Process Development Engineer Relationship Specialty Start Date End Date Renuka Gamez APRN.LAN SUPPORT SPECIALIST [address] [place] [address] [id number] PCP - General Family Medicine 11/15/22 Process Development Engineer Relationship Specialty Start Date End Date Renuka Gamez APRN.LAN SUPPORT SPECIALIST [address] [place] [address] [phone] PCP - General Family Medicine 11/15/22 Process Development Engineer Relationship Specialty Start Date End Date Renuka Gamez, MATTHEW.LAN SUPPORT SPECIALIST [address] [place] [address] [phone] PCP - General Family Medicine 11/15/22 Process Development Engineer Relationship Specialty Start Date End Date Renuka Gamez APRN.LAN SUPPORT SPECIALIST [address] [place] [address] [id number] PCP - General Family Medicine 11/15/22 Process Development Engineer Relationship Specialty Start Date End Date Renuka Gamez, MATTHEW.LAN SUPPORT SPECIALIST [address] [place] [address] [id number] PCP - General Family Medicine 11/15/22 Process Development Engineer Relationship Specialty Start Date End Date Renuka Gamez APRN.LAN SUPPORT SPECIALIST [address] [place] [address] [id number] PCP - General Family Medicine 11/15/22 Process Development Engineer Relationship Specialty Start Date End Date Renuka Gamez APRN.LAN SUPPORT SPECIALIST [address] [place] [address] [phone] PCP - General Family Medicine 11/15/22 Process Development Engineer Relationship Specialty Start Date End Date Renuka Gamez APRN.LAN SUPPORT SPECIALIST [address] [place] [address] [phone] PCP - General Family Medicine 11/15/22 Process Development Engineer Relationship Specialty Start Date End Date Renuka Gamez, ENVIRONMENTAL FIELD SERVICES TECHNICIAN.LAN SUPPORT SPECIALIST [address] [place] [address] [phone] PCP - General Family Medicine 11/15/22 Team Status: Active Member Role/Relationship Status Dates FELISHA Vázquez Primary Care Provider Active Team Status: Inactive Member Role/Relationship Status Dates FELISHA Vázuqez Primary Care Provider Active Start: April 18, 2025 End: April 18, 2025 FELISHA Vázquez Attending Provider Active Start: April 18, 2025 End: April 18, 2025 FELISHA Vázquez Referring Provider Active Start: April 18, 2025 End: April 18, 2025 (unrecognized sect ion and content) No Status Records FoundNo Status Records Found INFORMATION SOURCE (unrecogn ized section and content) DATE CREATED AUTHOR 04/19/2025 [facility] DATE CREATED AUTHOR JON VENTURA 05/04/2025 [facility] Goals (unrecognized section and content) Goals may be documented in a n alternate section FOR RECORDS PERTAINING TO PATIENTS WHO ARE OR HAVE BEEN ENROLLED IN A CHEMICAL DEPENDENCY/SUBSTANCEABUSE PROGRAM, SOME INFORMATION MAY BE OMITTED. This clinical summary was aggregated from multiple sources. Caution should be exercised in using it in the provision of clinical care. This summary normalizes information from multiple sources, and as a consequence, information in this document may materially change the coding, format and clinical context of patient data. In addition, data may be omitted in some cases. CLINICAL DECISIONS SHOULD BE BASED ON THE PRIMARY CLINICAL RECORDS. [facility]. provides no warranty or guarantee of the accuracy or completeness of information in this document.
== END | disposition home or self-care (01) ==
LOC: SL 06:57
PROVIDERS: PCP Nurse Practitioner Family; Referring Provider Nurse Practitioner Family; Visit Provider Nurse Practitioner Family
DX: Z46.89 Encounter for fitting and adjustment of other specified devices (principal)